=== PATIENT | female | born 1940 | race Caucasian/White ===

== ENCOUNTER 2016-10-15 12:13 | Inpatient (IN) | payer OTHER, MEDICARE ==
[~2016-10-15] VITALS: Ht 170.2 cm; Wt 73.9 kg
[~2016-10-15 12:13] MED LIST: ALLOPURINOL100 MG PO; CRESTOR10 M1 PO; FISH OIL CONC1000 MG PO; FOLIC ACID1 M1 PO; JANUVIA100 M1 PO; LEVOTHYROXINE150 MCG PO; MULTIPLE VITAM1 EAC2 PO; OMEPRAZOLE D/R20 MG PO; PRINIVIL10 M1 PO; PROBIOTIC & ACI1 CAP PO; TRAZODONE HCL50 M1 PO; TRAZODONE50 MG PO; VITAMIN D1000 IU PO; ZINC15 MG PO
--- NOTE | 2016-10-15 12:19 | ED SYNCOPE COMPLAINT ---
History of Present Illness General Chief Complaint: Syncope and Near-Syncope Stated Complaint: BIBA SYNCOPAL EPISODE/DIZZINESS Source: patient, family, old records, EMS Exam Limitations: no limitations Vital Signs & Intake/Output Vital Signs & Intake/Output Vital Signs Date Time Temp Pulse Resp B/P B/P Pulse O2 O2 Flow FiO2 Mean Ox Delivery Rate 10/15 1948 96.7 18 148/82 94 Room Air 10/15 1944 Room Air 10/15 1822 97.1 56 16 179/69 94 Room Air 10/15 1607 97.3 66 18 162/72 94 Room Air 10/15 1310 57 135/59 10/15 1309 57 135/59 10/15 1227 93 10/15 1223 98.0 57 18 160/70 96 Room Air Allergies Coded Allergies: codeine (UNKNOWN 10/15/16) Reconcile Medications Cholecalciferol (Vitamin D3) (Vitamin D) 5,000 UNIT TABLET 1 TAB PO DAILY VITAMIN SUPPORT (Reported) Folic Acid 1 MG TABLET 1 TAB PO DAILY SUPPLEMENT (Reported) Gabapentin 100 MG CAPSULE 1 CAP PO BID UNKNOWN (Reported) Levothyroxine Sodium 150 MCG TABLET 1 TAB PO MoWeFr ANN (Reported) Lisinopril (Prinivil) 10 MG TABLET 1 TAB PO DAILY HTN (Reported) Meclizine HCl 25 MG TABLET 1 TAB PO TIDPRN PRN DIZZNESS (Reported) Midodrine HCl 10 MG TABLET 1 TAB PO TID BP (Reported) Multivitamin (Multiple Vitamins) 1 EACH TABLET 1 TAB PO DAILY VITAMIN SUPPORT (Reported) Potassium Chloride 20 MEQ TAB.ER.PRT 1 TAB PO BID SUPPLEMENT (Reported) Prednisone 10 MG TABLET 1 TAB PO DAILY STEROID (Reported) Rosuvastatin Calcium (Crestor) 10 MG TABLET 1 TAB PO MoWeFr HLD (Reported) Sitagliptin Phosphate (Januvia) 100 MG TABLET 0.5 TAB PO MoWeFr DM (Reported) Thiamine HCl (B-1) 100 MG TABLET 1 TAB PO DAILY VITAMIN SUPPORT (Reported) Trazodone HCl 50 MG TABLET 1.5 TAB PO QPM DEPRESSION (Reported) Trazodone HCl 50 MG TABLET 1 TAB PO QPM SLEEP (Reported) Triage Nurses Notes Reviewed? yes Timing: multiple episodes today Precipitating Factors: lightheadedness Context: became dizzy/fainted (sittin got standing ) Episode Description: Patient reports feeling very dizzy and lightheaded when going from a sitting to standing position and has had multiple episodes where she will lose consciousness and fall over Loss of Consciousness: brief (seconds) Associated Symptoms: dizziness, syncope LMP (ages 10-50): post menopausal : No Patient currently breastfeeds: No HPI: A 76-year-old female with history of CKD on peritoneal dialysis, stable brain aneurysm, and orthostatic hypotension brought in by ambulance for evaluation after multiple syncopal episodes. Patient reports that over the past few months she has had multiple episodes of syncope after going from a sitting to standing position. Patient reports that upon standing she feels very lightheaded and will lose consciousness and fall over. She denies ever hitting her head or head injuries. She denies any chest pain or shortness of breath during the episodes. Patient was recently put on midodrine to attempt to increase her blood pressure. She has been taking this 3 times without any improvement. She is also been treated with meclizine without improvement. No headaches, fever or rash. Patient does peritoneal dialysis for 9 hours at night and then again in the afternoon every day. (AIDA MENDEZ PA-C) Past History Travel History Traveled to [place] past 21 day No Medical History Any Pertinent Medical History? see below for history Neurological: myasthenia gravis EENT: NONE Cardiovascular: hyperlipidemia Respiratory: NONE Gastrointestinal: GERD Hepatic: NONE Renal: ESRD on PD Musculoskeletal: NONE Psychiatric: NONE Endocrine: diabetes, Ann's thyroiditis Blood Disorders: NONE Cancer(s): NONE [employer] WORK[employer]/Reproductive: NONE History of MRSA: No History of VRE: No History of CDIFF: No Surgical History Surgical History: non-contributory Psychosocial History Who do you live with Spouse What is your primary language German Family History Family History, If Any: BROTHER FH polycystic kidney Hx Contributory? Yes (AIDA MENDEZ PA-C) Review of Systems Review of Systems Constitutional: Reports: no symptoms. EENTM: Reports: no symptoms. Respiratory: Reports: no symptoms. Cardiovascular: Reports: no symptoms. GI: Reports: no symptoms. Genitourinary: Reports: no symptoms. Musculoskeletal: Reports: no symptoms. Skin: Reports: no symptoms. Neurological/Psychological: Reports: see HPI, other (SYNCOPE, DIZZINESS). All Other Systems: Reviewed and Negative (AIDA MENDEZ PA-C) Physical Exam Physical Exam General Appearance: well developed/nourished, no apparent distress, alert, awake Head: atraumatic, normal appearance Eyes: Bilateral: normal appearance, PERRL, EOMI. Ears, Nose, Throat: normal pharynx, normal ENT inspection, hearing grossly normal Neck: normal inspection, supple, full range of motion Respiratory: normal breath sounds, chest non-tender, no respiratory distress, lungs clear Cardiovascular: regular rate/rhythm, normal peripheral pulses Gastrointestinal: normal bowel sounds, soft, non-tender, no organomegaly Back: normal inspection, normal range of motion, no vertebral tenderness Extremities: normal inspection, normal capillary refill, normal range of motion, no edema Psychiatric: awake, alert, oriented x 3, depressed affect Cranial Nerves: normal hearing, normal speech, PERRL Coordination/Gait: normal finger to nose, normal gait Motor/Sensory: no motor/sensory deficits Reflexes: 2+: bicep (R), bicep (L). Skin: intact, normal color, warm/dry Lymphatic: no anterior cervical sosa Core Measures ACS in differential dx? Yes CVA/TIA Diagnosis: No Severe Sepsis Present: No Septic Shock Present: No (AIDA MENDEZ PA-C) Progress Differential Diagnosis: AMI, aortic valve, orthostatic syncope, other valvular disease, seizure, TIA/CVA, ventricular tach/fib, VERTIGO Plan of Care: Orders Procedure Date/time Status CORTISOL AM 10/16 1200 Active CBC WITHOUT DIFFERENTIAL 10/16 0600 Active BASIC ELECTROLYTES PLUS BUN&CR 10/16 0600 Active Renal Dialysis Diet 10/15 D Active Teach/Educate 10/15 1942 Active Pain Treatment and Response 10/15 194 Active Nutritional Intake, Monitor 10/15 194 Active Isolation 10/15 194 Active Patient Care Conference 10/15 194 Active Activity/Ambulation 10/15 194 Active FingerStick- Glucose 10/15 1846 Active CORTISOL AM 10/15 1755 Active ACTH Ref$ 10/15 1755 Active Intake & Output 10/15 1618 Active Pathway - chart 10/15 1556 Active House Staff 10/15 1556 Active Patient Data 10/15 1556 Active Code Status 10/15 1556 Active Code Status 10/15 1511 Complete ED Holding Orders 10/15 1506 Active Admit to inpatient 10/15 1506 Active Vital Signs 10/15 1506 Active Patient Data 10/15 1449 Active Telemetry/Curriculum Writer 10/15 1317 Active MISTAKE 10/15 1242 Active URINALYSIS 10/15 1242 Active TROPONIN LEVEL 10/15 1242 Complete COMPREHENSIVE METABOLIC PANEL 10/15 1242 Complete CBC WITHOUT DIFFERENTIAL 10/15 1242 Complete EKG 10/15 1214 Active VTE Mechanical Prophylaxis 10/15 UNK Active Telemetry/Curriculum Writer 10/15 UNK Active Peritoneal Dialysis 10/15 UNK Active Current Medications Sig/Bailey Start time Last Medication Dose Stop Time Status Admin Prednisone 2.5 MG MoWeFr@1000 10/17 1000 AC (Prednisone) Levothyroxine Sodium 0.15 MG MoWeFr@0700 10/17 0700 AC (Synthroid) Cosyntropin 0.25 MG ONE ONE 10/16 1100 AC (Cortrosyn 0.25MG 10/16 1101 Vial Inj) Insulin Aspart 0 TIDAC 10/16 0800 AC (NovoLOG) Midodrine 10 MG 0800,1200,1600 10/16 0800 AC (Pro-Amatine) Heparin Sodium 5,000 UNIT Q8 10/15 2200 AC (Porcine) Meclizine HCl 12.5 MG Q8P PRN 10/15 1815 AC (Antivert) Acetaminophen 650 MG Q6P PRN 10/15 1600 AC (Tylenol) Acetaminophen 1,000 MG Q6P PRN 10/15 1600 AC (Ofirmev) Laboratory Tests 10/15/16 1257: Anion Gap 11, Estimated GFR 4 L, BUN/Creatinine Ratio 3.4 L, Glucose 151 H, Calcium 8.2 L, Total Bilirubin 0.8, AST 19, ALT 24, Alkaline Phosphatase 62, Troponin I 0.01, Total Protein 5.5 L, Albumin 3.1 L, Globulin 2.4, Albumin/ Globulin Ratio 1.3, CBC w Diff MAN DIFF ORDERED, RBC 3.37 L, MCV 99.1 H, MCH 33.6 H, RDW 13.1, MPV 9.3, Gran % 89.4 H, Lymphocytes % 7.3 L, Monocytes % 3.3, Eosinophils % 0, Basophils % 0 L, Absolute Granulocytes 12.2 H, Segmented Neutrophils 87 H, Band Neutrophils 5, Absolute Lymphocytes 1.0 L, Lymphocytes 7 L, Monocytes 1 L, Absolute Monocytes 0.5, Absolute Eosinophils 0, Absolute Basophils 0, Platelet Estimate ADEQUATE, Hypochromic-Microcytic 1+, PUBS MCHC 33.9 1:30 PM EKG reviewed, telemetry ordered. CBC CMP troponin and urinalysis ordered. Patient received 300 mL of normal saline in the prehospital setting. Patient was very orthostatic dropping from 150s to 80s systolic going from laying down to standing. Patient will likely be admitted for syncope and orthostatic hypotension. 1:[address] Topete patient's ornithology teacher was paged. Labs are back and show sodium of 129 and creatinine of 9. View of previous labs show creatinine usually runs in the 4-5 range. Pt has not yet been dialysed today. 2 PM: Spoke with Dr. Topete he will consult on the patient when she is admitted. Spoke with case management who feels patient will be a full admit to telemetry. Updated pt about the situation. (AIDA MENDEZ PA-C) Initial ED EKG: normal sinus rhythm, NSR, multiform PVCs, boderline LAD, no ST or T wave chnages Prior EKG: unchanged (AIDA MENDEZ PA-C) Departure Departure Disposition: STILL A PATIENT Condition: Stable Clinical Impression Primary Impression: Chronic kidney disease (CKD) Qualifiers: Chronic kidney disease stage: on chronic dialysis Qualified Codes: N18.6 - End stage renal disease; Z99.2 - Dependence on renal dialysis Secondary Impressions: Sympathotonic orthostatic hypotension, Syncope due to orthostatic hypotension Referrals: GAB PENA,IVAN Agrawal (PCP/Family) Departure Forms: Customer Survey General Discharge Information Admission Note Spoke With: ALYSON PENA,XANDER Almanzar Documentation of Exam: Patient requires admission for further evaluation of multiple syncopal episodes with orthostatic hypotension, CKD with creatinine of 9. Pt will likley require multiple inpatient days for apprpriate eval. She will require telemetry monitoring, physical therapy consult, gentle hydration, serial labs medication adjustment cardiology consult echocardiogram, tilt table test, nephrology consult with possible dialysis adjustment (AIDA MENDEZ PA-C) Departure Time of Disposition: 1506 PA/GROUP RESERVATIONS COORDINATOR Co-Sign Statement Statement: ED Attending supervision documentation- [X] I saw and evaluated the patient. I have also reviewed all the pertinent lab results and diagnostic results. I agree with the findings and the plan of care as documented in the PA's/GROUP RESERVATIONS COORDINATOR's documentation. [X] I have reviewed the ED Record and agree with the PA's/GROUP RESERVATIONS COORDINATOR's documentation. [] Additions or exceptions (if any) to the PAs/GROUP RESERVATIONS COORDINATOR's note and plan are summarized below: [] (ARTUR PENA,LUIS)
--- NOTE | 2016-10-15 12:23 | NUR ---
PT WITH SEVERAL EPISODES OF SYNCOPE TODAY. PT WITH HX OF SAME STATES HER MD AND NEPHROLOGYST AWARE AND THEY CAN'T PIN POINT WHY. PT ON PERATONIEL DIALYSIS AT HOME. PT FELL ON SATURDAY PER PT. PT BP WAS 80/40 FOR EMS. WAS GIVEN 500NS BOLUS ON ROUTE. PT ARRIVES BP 160/70 MANUAL
--- NOTE | 2016-10-15 13:08 | NUR ---
BLOOD DRAWN AND SENT -SST,LAV,BLUE,WARNER.
[2016-10-15 13:18] LABS: ABSOLUTE BASOPHIL COUNT 0 /CUMM (0.0-0.2); ABSOLUTE EOSINOPHIL COUNT 0 /CUMM (0.0-0.7); ABSOLUTE GRANULOCYTE CT 12.2 /CUMM (1.4-6.5); ABSOLUTE MONOCYTE COUNT 0.5 /CUMM (0.10-0.60); BASOPHIL % 0 % (0.0-2.0); EOSINOPHIL % 0 % (0-5); GRANULOCYTE % 89.4 % (42.2-75.2); HEMATOCRIT 33.4 % (37-47); MEAN CORPUSCULAR HGB 33.6 PG (27.0-31.0); MEAN CORPUSCULAR HGB CONC 33.9 G/DL (33.0-37.0); MEAN CORPUSCULAR VOLUME 99.1 FL (81.0-99.0); MEAN PLATELET VOLUME 9.3 FL (7.4-10.4); PLATELET COUNT 274 /CUMM (130-400); RBC DISTRIBUTION WIDTH 13.1 % (11.5-14.5); RED BLOOD CELL CT 3.37 /CUMM (4.20-5.40); WHITE BLOOD CELL COUNT 13.7 /CUMM (4.8-10.8)
--- NOTE | 2016-10-15 13:44 | NUR ---
CRITICAL TEST RESULTS [id number] DENY OSPINA 76 F TESTS AND RESULTS: CR. 3.4 Results received and read back by: EDDIE BOLIVAR Results received date and time: 10/15/16 1345 The following provider was notified of the results, and read the results back: DANAE SANON Notified date and time: 10/15/16 at 1345
[2016-10-15] MEDS ORDERED: GABAPENTIN100 M2 PO (13:55)
[2016-10-15] MEDS ORDERED: POTASSIUM CHLO20 ME2 PO (13:56)
[2016-10-15] MEDS ORDERED: MECLIZINE HCL25 MG PO (13:57)
[2016-10-15] MEDS ORDERED: MIDODRINE HCL10 M1 PO (13:58)
[2016-10-15] MEDS ORDERED: PREDNISONE10 M2 PO (13:59)
[2016-10-15] MEDS ORDERED: B-1100 MG PO (13:59)
[2016-10-15] MEDS ORDERED: VITAMIN D5000 UNIT PO (14:00)
[2016-10-15] MEDS ORDERED: TRAZODONE HCL50 M1 PO (14:00)
--- NOTE | 2016-10-15 15:30 | NUR ---
HOUSE STAFF AT BEDSIDE FOR EVAL.
--- NOTE | 2016-10-15 15:46 | NUR ---
FOOD TRAY ORDERED.
--- NOTE | 2016-10-15 16:15 | NUR ---
FOOD TRAY PROVIDED. DR. RODRIGUEZ AT BEDSIDE FOR EVAL. PT NOTED TO HAVE SYNCOPAL EPISODE JUST WHEN BEING SAT UP IN STRETCHER BY DR. RODRIGUEZ. PT RESPONDS TO VERBAL STIMULI WITHIN THIRTY SECONDS. WILL CONTINUE TO MONITOR.
--- NOTE | 2016-10-15 16:35 | NUR ---
CONTACTED BULK WHO WILL LOOK FOR DIALYSIS BAG.
--- NOTE | 2016-10-15 16:51 | NUR ---
HOUSE STAFF PAGED TO CLARIFY ORDERS.
--- NOTE | 2016-10-15 17:03 | NUR ---
PAGER [phone] FOR SECOND TIME. AWAITING CALL BACK.
--- NOTE | 2016-10-15 17:06 | History & Physical ---
PEDRO PENA,JAMAAL 10/15/16 1706: General Information and HPI MD Statement: I have seen and personally examined DENY OSPINA and documented this H&P. The patient is a 76 year old F who presented with a patient stated chief complaint of []. Source of Information: patient Exam Limitations: no limitations History of Present Illness: Patient is a 76-year-old female with significant past medical history of end stage renal disease secondary to autosomal dominant polycystic kidney disease on regular peritoneal dialysis(2012), history of brain aneurysm(f/u Dr Jung, going for a screening MRA every 9 months), history of Ann thyroiditis, mild myasthenia gravis, diabetes mellitus, psoriasis with psoriatic arthritis on chronic prednisone, presented with history of episodes of syncope and fall. According to the patient, since last one and half year, she is having gradually progressive dizziness. She is following her primary care physician. they started her on midodrine without any improvement. Since last 6 months she started having difficulty in controlling her neck. In this last weekend she had an episodes of passing out, but she is not able to remember and said that her told her she had episodes of uprolling of eyes. Denies trauma, tongue bite, incontinence of stool and urine, fever, chills, chest pain, palpitation, abdominal pain. She was found to have orthostatic hypotension for which she was started on midodrine. She also claims that because of this orthostatic hypotension and episodes of recurrent falls. She was out of the list of the transplant for kidneys at [facility]. She is following [facility] for dialysis. Her last blood test was done on last week and, after which she was advised to decrease the amount of water intake. Allergies-codeine PCP-Lizeth River MD Machine Specialist-Dr. Topete Senior [employer] [address] Sql Developer-Dr. Xavier Allergies/Medications Allergies: Coded Allergies: codeine (UNKNOWN 10/15/16) Home Med list Cholecalciferol (Vitamin D3) (Vitamin D) 5,000 UNIT TABLET 1 TAB PO DAILY VITAMIN SUPPORT (Reported) Folic Acid 1 MG TABLET 1 TAB PO DAILY SUPPLEMENT (Reported) Gabapentin 100 MG CAPSULE 1 CAP PO BID UNKNOWN (Reported) Levothyroxine Sodium 150 MCG TABLET 1 TAB PO MoWeFr ANN (Reported) Lisinopril (Prinivil) 10 MG TABLET 1 TAB PO DAILY HTN (Reported) Meclizine HCl 25 MG TABLET 1 TAB PO TIDPRN PRN DIZZNESS (Reported) Midodrine HCl 10 MG TABLET 1 TAB PO TID BP (Reported) Multivitamin (Multiple Vitamins) 1 EACH TABLET 1 TAB PO DAILY VITAMIN SUPPORT (Reported) Potassium Chloride 20 MEQ TAB.ER.PRT 1 TAB PO BID SUPPLEMENT (Reported) Prednisone 10 MG TABLET 1 TAB PO DAILY STEROID (Reported) Rosuvastatin Calcium (Crestor) 10 MG TABLET 1 TAB PO MoWeFr HLD (Reported) Sitagliptin Phosphate (Januvia) 100 MG TABLET 0.5 TAB PO MoWeFr DM (Reported) Thiamine HCl (B-1) 100 MG TABLET 1 TAB PO DAILY VITAMIN SUPPORT (Reported) Trazodone HCl 50 MG TABLET 1.5 TAB PO QPM DEPRESSION (Reported) Trazodone HCl 50 MG TABLET 1 TAB PO QPM SLEEP (Reported) Past History Travel History Traveled to [place] past 21 day No Medical History Neurological: myasthenia gravis EENT: NONE Cardiovascular: hyperlipidemia Respiratory: NONE Gastrointestinal: GERD Hepatic: NONE Renal: ESRD on PD Musculoskeletal: NONE Psychiatric: NONE Endocrine: diabetes, Ann's thyroiditis Blood Disorders: NONE Cancer(s): NONE LENDING ADVISOR/Reproductive: NONE Other Medical Hx: cerbral aneurysm History of MRSA: No History of VRE: No History of CDIFF: No Surgical History Surgical History: non-contributory Past Family/Social History Family History Relations & Conditions if any BROTHER FH polycystic kidney Psychosocial History ETOH Use: denies use Illicit Drug Use: denies illicit drug use Review of Systems Review of Systems Constitutional: Denies: no symptoms. Cardiovascular: Denies: no symptoms. Respiratory: Denies: no symptoms. Genitourinary: Denies: no symptoms. Musculoskeletal: Denies: no symptoms. Neurological/Psychological: Denies: no symptoms. Exam & Diagnostic Data Last 24 Hrs of Vital Signs/I&O Vital Signs Date Time Temp Pulse Resp B/P B/P Pulse O2 O2 Flow FiO2 Mean Ox Delivery Rate 10/15 1948 96.7 18 148/82 94 Room Air 10/16 1943 Room Air 10/15 1822 97.1 56 16 179/69 94 Room Air 10/15 1607 97.3 66 18 162/72 94 Room Air 10/15 1310 57 135/59 10/15 1309 57 135/59 06/12 1227 93 10/15 1223 98.0 57 18 160/70 96 Room Air Intake & Output 10/15 1600 10/15 0800 10/15 0000 Intake Total Output Total Balance Patient 73.482 kg Weight Weight Reported by Patient Measurement Method Physical Exam General Appearance Alert, Oriented X3, Cooperative, No Acute Distress Cardiovascular Normal S1, Normal S2 Lungs Clear to Auscultation, Normal Air Movement Abdomen Soft, No Tenderness, dialysis catheter is in place on the left middle quadrant Neurological Normal Speech, Strength at 5/5 X4 Ext Extremities No Clubbing, No Cyanosis, No Edema Vascular Normal Pulses, Pulses Symmetrical Last 24 Hrs of Labs/Baldo: Laboratory Tests 10/15/16 1257: Anion Gap 11, Estimated GFR 4 L, BUN/Creatinine Ratio 3.4 L, Glucose 151 H, Calcium 8.2 L, Total Bilirubin 0.8, AST 19, ALT 24, Alkaline Phosphatase 62, Troponin I 0.01, Total Protein 5.5 L, Albumin 3.1 L, Globulin 2.4, Albumin/ Globulin Ratio 1.3, CBC w Diff MAN DIFF ORDERED, RBC 3.37 L, MCV 99.1 H, MCH 33.6 H, RDW 13.1, MPV 9.3, Gran % 89.4 H, Lymphocytes % 7.3 L, Monocytes % 3.3, Eosinophils % 0, Basophils % 0 L, Absolute Granulocytes 12.2 H, Segmented Neutrophils 87 H, Band Neutrophils 5, Absolute Lymphocytes 1.0 L, Lymphocytes 7 L, Monocytes 1 L, Absolute Monocytes 0.5, Absolute Eosinophils 0, Absolute Basophils 0, Platelet Estimate ADEQUATE, Hypochromic-Microcytic 1+, PUBS MCHC 33.9 Diagnostic Data EKG Results Normal sinus rhythm, heart rate 57, WA 196, QRS 86, QTC 0.463 Assessment/Plan Assessment: Patient is a 76-year-old female with significant past medical history of end stage renal disease secondary to autosomal dominant polycystic kidney disease on regular peritoneal dialysis(2012), history of brain aneurysm(f/u Dr Jung, going for a screening MRA every 9 months), history of Ann thyroiditis, mild myasthenia gravis, diabetes mellitus, psoriasis with psoriatic arthritis on chronic prednisone, presented with history of episodes of syncope and fall. Vital signs at the time of admission -temperature 98.0, pulse 57, respiratory 18 , blood pressure 160/70, SPO2 96% on room air Pertinent labs -Hb-11.3,MCV-99.1,K-129,Cretinine-9.4,ca-8.2,alb -3.1 Assessment and plans Patient has episodes of syncope and found to have orthostatic hypotension. It can be due to amyloidosis secondary to peritoneal dialysis or it can be due to steroid insufficiency because she was on chronic steroid therapy for psoriasis and arthritis. Orthostatic hypotension * We will admit the patient to telemetry floor * We will rule out arrhythmia by regularly checking the heart rhythm * We'll take cardiology consult and follow the recommendation * Will give IV fluids 1 liter bolus * We will continue tablet midodrine as before * We will discuss with stencil cutter machine for starting her on fludrocortisone * We will check steroid, label after ACTH stimulation test, to rule out adrenal insufficiency * Strict intake output charting * Fall precautions End stage renal disease on Peritoneal dialysis * We will place nephrology consult and followed the recommendation Will start patient on peritoneal dialysis according to the recommendation History of myasthenia gravis * Patient is not on any medications, she is complaining of weakness in the neck muscle. She is already been evaluated before. * We will take a neurologic consult and followed the recommendation Hypothyroidism-Ann thyroiditis * We'll continue levothyroxine at home doses Diet-diabetic diet DVT prophylaxis-ALP S/heparin CODE STATUS-full code As Ranked By This Provider Problem List: 1. Diabetes 2. Ann's disease 3. Polycystic kidney disease 4. Syncope and collapse 5. Peritoneal dialysis catheter in place 6. Sympathotonic orthostatic hypotension Core Measures/Miscellaneous Acute Coronary Syndrome ACS Diagnosis: No Cerebrovascular Accident CVA/TIA Diagnosis: No Congestive Heart Failure CHF Diagnosis: No VTE (View Protocol) VTE Risk Factors: Age > 40 No [facility] VTE prophylaxis d/t: No contraindications No VTE Pharm Prophylaxis d/t: No contraindications VTE Diagnosis: No VTE Type: NONE VTE Confirmed by (Test): NONE Sepsis (View Protocol) Severe Sepsis Present: No Septic Shock Septic Shock Present: No Miscellaneous Documentation Attending Case Discussed With: XANDER SHIELDS MD Primary Care Physician: GAB PENA,LIZETH Agrawal Patient sees these Specialists Lanre Aguirre MD, Level of Patient Care: Telemetry TAMANNA SMALL 10/15/16 1711: Resident Review Statement Resident Statement: examined this patient, discussed with web development intern, agreed with web development intern Other Findings: Patient is a 76-year-old woman with a past medical history significant for end- stage renal disease due to ADPKD on peritoneal dialysis since 2012 , treated with brain aneurysm follows up with Dr. Jung as an outpatient(gets MRA every 9 months), history of orthostatic hypotension history of Ann's thyroiditis, myasthenia gravis, diabetes mellitus, since, rheumatoid arthritis on chronic prednisone presented to the ED with concerns of syncope. Patient has a history of orthostatic hypotension for the last 1-1/2 years getting worse for the last couple of months. She has been started on midodrine by her stencil cutter machine, without much improvement in her symptoms.Patient also reported that for the last couple of months she cannot able to hold up her neck, has been getting dizzy spells/episodes. For the last 2 days she had multiple episodes of syncope from sitting to standing position due to severe dizziness and lightheadedness, passed out completely for couple of seconds, had a witnessed fall by her ,denied any injuries to neck. . Her symptoms are concerning and she was brought to the ER for further assessment. In the ED patient denied any dizziness, trouble breathing or palpitations. Patient denies any nausea or vomiting or any abdominal discomfort or urinary complaints. in ED patient was found to be severely orthostatic and her blood pressure dropped from 150 systolic and lying position to 80 on sitting. General Appearance: Alert, No Acute Distress, in moving from laying to sitting position patient passed out for couple of seconds. Skin: Grossly normal HEENT: PEERLA Neck: Supple, No JVD Cardiovascular: Irregularly irregular rate and rhythm, No Murmurs Lungs: Clear to Auscultation, Normal Air Movement Abdomen: Normal Bowel Sounds, Soft, No Tenderness Neurological: Normal Speech, Strength at 5/5 X4 Ext, Cranial Nerves 3-12 NL, Reflexes 2+ Extremities: No edema in the lower activities. Vascular: Normal Pulses . Pertinent labs hyponatremia sodium 129, elevated creatinine 9.4 with a BUN of 32 , EKG normal sinus rhythm Assessment and plan: This is a 76-year-old woman with a past medical history significant for end- stage renal disease due to ADPKD on peritoneal dialysis since 2012 , treated with brain aneurysm follows up with Dr. Jung as an outpatient(gets MRA every 9 months), history of orthostatic hypotension history of Ann's thyroiditis, myasthenia gravis, diabetes mellitus, since, rheumatoid arthritis on chronic prednisone presented to the ED for the evaluation of severe orthostatic hypotension. Plan: Syncope from Severe orthostatic hypotension(differentials include adrenal insufficiency/autoimmune disorder/amyloidosis)/cardiogenic/vasovagal: * We'll monitor the patient on telemetry floor. * We'll bolus the patient with 1 L of normal saline right now. * Closely monitor the patient for any arrhythmias. * We'll check morning a.m. cortisol levels if low ,do ACTH ( cotrosyn) stimulation test to rule out any adrenal insufficiency. * Repeat orthostatics. * Continue with midodrine 10 mg 3 times a day with meclizine as needed for dizziness. * Continue to hold all of her hypertensive medications. * Monitor vitals every 4 hours watch for any hemodynamic instability * Obtain neurology consult in the morning. History of end-stage renal disease on peritoneal dialysis: * Nephrology consult Dr. Patterson has been obtained will follow the recommendations. History of diabetes mellitus * Hold oral hypoglycemics * Start the vision overall sliding scale with Accu-Cheks. History of rheumatoid arthritis * Continue prednisone 2.5 mg 3 times a week. History of hypothyroidism * Continue levothyroxin Mild to moderate pain controlled with Tylenol DVT prophylaxis with subcutaneous Lovenox Patient is full code
--- NOTE | 2016-10-15 17:06 | Cons- Nephrology ---
General Information and HPI Consulting Request Date of Consult: 10/15/16 Requested By: ALYSON PENA,XANDER Almanzar Reason for Consult: Syncope in dialysis patient History of Present Illness: 76 yo female with ESRD due ADPKD on peritoneal dialysis since 2012. She has orthostatic hypotension which has worsened over last year. She has diabetes and mild neuropathy. She also has known cerberal aneurysm which is followed by neurosurgery. The extent of her prior evaluation for her orthostasis is unkonw to me but she is followed by Dr. Topete from cardiology. She is on midodrine 10 mg tid and despite this had several syncopal episodes this past weekend. She came to ED where her lying bp was 150, fell to 80 on standing. When I saw her in the ED her systolic BP was 163 lying but she immediately lost consciousness on just sitting up with legs extended, did not have time to repeat BP. No tachycardia noted during event. There have been no dialysis issues at home, she is near her dry weight. No N/V/diarrhea. Allergies/Medications Allergies: Coded Allergies: codeine (UNKNOWN 10/15/16) Home Med List: Cholecalciferol (Vitamin D3) (Vitamin D) 5,000 UNIT TABLET 1 TAB PO DAILY VITAMIN SUPPORT (Reported) Folic Acid 1 MG TABLET 1 TAB PO DAILY SUPPLEMENT (Reported) Gabapentin 100 MG CAPSULE 1 CAP PO BID UNKNOWN (Reported) Levothyroxine Sodium 150 MCG TABLET 1 TAB PO MoWeFr ANN (Reported) Lisinopril (Prinivil) 10 MG TABLET 1 TAB PO DAILY HTN (Reported) Meclizine HCl 25 MG TABLET 1 TAB PO TIDPRN PRN DIZZNESS (Reported) Midodrine HCl 10 MG TABLET 1 TAB PO TID BP (Reported) Multivitamin (Multiple Vitamins) 1 EACH TABLET 1 TAB PO DAILY VITAMIN SUPPORT (Reported) Potassium Chloride 20 MEQ TAB.ER.PRT 1 TAB PO BID SUPPLEMENT (Reported) Prednisone 10 MG TABLET 1 TAB PO DAILY STEROID (Reported) Rosuvastatin Calcium (Crestor) 10 MG TABLET 1 TAB PO MoWeFr HLD (Reported) Sitagliptin Phosphate (Januvia) 100 MG TABLET 0.5 TAB PO MoWeFr DM (Reported) Thiamine HCl (B-1) 100 MG TABLET 1 TAB PO DAILY VITAMIN SUPPORT (Reported) Trazodone HCl 50 MG TABLET 1.5 TAB PO QPM DEPRESSION (Reported) Trazodone HCl 50 MG TABLET 1 TAB PO QPM SLEEP (Reported) Review of Systems Review of Systems: Negative except as noted above. Past History Travel History Traveled to [place] past 21 day No Medical History Neurological: myasthenia gravis EENT: NONE Cardiovascular: hyperlipidemia Respiratory: NONE Gastrointestinal: GERD Hepatic: NONE Renal: ESRD on PD Musculoskeletal: NONE Psychiatric: NONE Endocrine: diabetes, Ann's thyroiditis Blood Disorders: NONE Cancer(s): NONE WHITE SOURER/Reproductive: NONE Other Medical Hx: cerbral aneurysm Surgical History Surgical History: non-contributory Family History Relations & Conditions If Any: BROTHER FH polycystic kidney Psychosocial History ETOH Use: denies use Illicit Drug Use: denies illicit drug use Exam & Diagnostic Data Vital Signs and I&O Vital Signs Date Time Temp Pulse Resp B/P B/P Pulse O2 O2 Flow FiO2 Mean Ox Delivery Rate 10/15 1607 97.3 66 18 162/72 94 Room Air 10/15 1310 57 135/59 10/15 1309 57 135/59 10/15 1227 93 10/15 1223 98.0 57 18 160/70 96 Room Air Intake & Output 10/15 1600 10/15 0400 10/14 1600 10/14 0400 10/13 1600 10/13 0400 Intake Total Output Total Balance Patient 162 lb Weight Weight Reported by Patient Measurement Method Physical Exam: NAD when lying. VS as noted. Eyes: anicteric, PERRLA Neck: no mass or thyromegaly Nodes: negative cervical/inguinal Skin: no rash or induration Lungs: clear P&A CV: no rub or murmur Abd: non-tender, kidneys enlarged, bowel sound positive Exts: no edema, absent pedal pulses Neuro: A&O, CNI, no asterixis Results Pertinent Lab Results: Laboratory Tests 10/15 1257 Chemistry Sodium (137 - 145 mmol/L) 129 L Potassium (3.5 - 5.1 mmol/L) 4.0 Chloride (98 - 107 mmol/L) 92 L Carbon Dioxide (22 - 30 mmol/L) 26 Anion Gap (5 - 16) 11 BUN (7 - 17 mg/dL) 32 H Creatinine (0.5 - 1.0 mg/dL) 9.4 *H Estimated GFR (>60 ml/min) 4 L BUN/Creatinine Ratio (7 - 25 %) 3.4 L Glucose (65 - 99 mg/dL) 151 H Calcium (8.4 - 10.2 mg/dL) 8.2 L Total Bilirubin (0.2 - 1.3 mg/dL) 0.8 AST (14 - 36 U/L) 19 ALT (9 - 52 U/L) 24 Alkaline Phosphatase (<127 U/L) 62 Troponin I (< 0.11 ng/ml) 0.01 Total Protein (6.3 - 8.2 g/dL) 5.5 L Albumin (3.5 - 5.0 g/dL) 3.1 L Globulin (1.9 - 4.2 gm/dL) 2.4 Albumin/Globulin Ratio (1.1 - 2.2 %) 1.3 Hematology CBC w Diff MAN DIFF ORDERED WBC (4.8 - 10.8 /CUMM) 13.7 H RBC (4.20 - 5.40 /CUMM) 3.37 L Hgb (12.0 - 16.0 G/DL) 11.3 L Hct (37 - 47 %) 33.4 L MCV (81.0 - 99.0 FL) 99.1 H MCH (27.0 - 31.0 PG) 33.6 H RDW (11.5 - 14.5 %) 13.1 Plt Count (130 - 400 /CUMM) 274 MPV (7.4 - 10.4 FL) 9.3 Gran % (42.2 - 75.2 %) 89.4 H Lymphocytes % (20.5 - 51.1 %) 7.3 L Monocytes % (1.7 - 9.3 %) 3.3 Eosinophils % (0 - 5 %) 0 Basophils % (0.0 - 2.0 %) 0 L Absolute Granulocytes (1.4 - 6.5 /CUMM) 12.2 H Segmented Neutrophils (42.2 - 75.2 %) 87 H Band Neutrophils (0.0 - 5.0 %) 5 Absolute Lymphocytes (1.2 - 3.4 /CUMM) 1.0 L Lymphocytes (20.5 - 51.1 %) 7 L Monocytes (1.7 - 9.3 %) 1 L Absolute Monocytes (0.10 - 0.60 /CUMM) 0.5 Absolute Eosinophils (0.0 - 0.7 /CUMM) 0 Absolute Basophils (0.0 - 0.2 /CUMM) 0 Platelet Estimate (ADEQUATE) ADEQUATE Hypochromic-Microcytic 1+ PUBS MCHC (33.0 - 37.0 G/DL) 33.9 Assessment/Plan Assessment/Recommendations Assessment: ESRD with extreme, symptomatic orthostatic hypotension. Origin of this not clear as doesn't have severe neuropathy. Seems euvolemic on exam although would consider pushing up volume and see if this can help with postural changes. Recommendations: Would give patient 1 liter of NS at 200 cc/hr and reassess BP. Will place on all 1.5% dextrose, 2.5 calcium dialyisate 4 amaury a day to try and minimize volume removal. Continue her usual outpatient medications. Patient states she takes prednisone 2.5 mg three times a week. It might be reasonable to perform cotrosyn stimulation test as she may be adrenally supressed by this low infrequent dose but not receiving enough to protect her from symptoms.
--- NOTE | 2016-10-15 17:10 | NUR ---
HOUSE STAFF PAGED AT 210. AWAITING CALL BACK.
--- NOTE | 2016-10-15 17:21 | Admission Certification ---
Admission Certification Certification Statement - As attending physician, I certify that at the time of - admission, based on clinical presentation, severity of - symptoms, need for further diagnostic testing and - therapeutic interventions, and risk of adverse outcomes - without in-hospital treatment, in my clinical assessment, - this patient requires an acute hospital stay for a minimum - of two nights or longer. I have also considered psychsocial - factors such as support system, advanced age, financial - issues, cognitive issues, and failed out-patient treatments, - past re-admission history, safety of patient, and lack of - compliance as applicable. Specific rationale supporting this admission is: recurrent syncopal episodes
--- NOTE | 2016-10-15 17:24 | NUR ---
PT'S PREHOSPITAL IV TOO PAINFUL FOR USE. [facility] AT BEDSIDE FOR NEW IV PLACEMENT.
--- NOTE | 2016-10-15 17:34 | NUR ---
IVF INFUSING NOW PER ORDER. CONFIRMED THAT PROVIDERS WANT THE IVF BEFORE DIALYSIS.
--- NOTE | 2016-10-15 17:43 | PN- Att Addend ---
Attending MD Review Statement Attending Statement Attending MD Statement: examined this patient, discuss w/resident/PA/DIRECTOR DIGITAL ADVERTISING, agreed w/resident/PA/DIRECTOR DIGITAL ADVERTISING, reviewed EMR data (avail), discussed w/nursing, discussed w/ case mgmt Attending Assessment/Plan: Laboratory Tests 10/15/16 1257: Anion Gap 11, Estimated GFR 4 L, BUN/Creatinine Ratio 3.4 L, Glucose 151 H, Calcium 8.2 L, Total Bilirubin 0.8, AST 19, ALT 24, Alkaline Phosphatase 62, Troponin I 0.01, Total Protein 5.5 L, Albumin 3.1 L, Globulin 2.4, Albumin/ Globulin Ratio 1.3, CBC w Diff MAN DIFF ORDERED, RBC 3.37 L, MCV 99.1 H, MCH 33.6 H, RDW 13.1, MPV 9.3, Gran % 89.4 H, Lymphocytes % 7.3 L, Monocytes % 3.3, Eosinophils % 0, Basophils % 0 L, Absolute Granulocytes 12.2 H, Segmented Neutrophils 87 H, Band Neutrophils 5, Absolute Lymphocytes 1.0 L, Lymphocytes 7 L, Monocytes 1 L, Absolute Monocytes 0.5, Absolute Eosinophils 0, Absolute Basophils 0, Platelet Estimate ADEQUATE, Hypochromic-Microcytic 1+, PUBS MCHC 33.9 Vital Signs Date Time Temp Pulse Resp B/P B/P Pulse O2 O2 Flow FiO2 Mean Ox Delivery Rate 10/15 1607 97.3 66 18 162/72 94 Room Air 10/15 1310 57 135/59 10/15 1309 57 135/59 10/15 1227 93 10/15 1223 98.0 57 18 160/70 96 Room Air 76 yr old female with pmh of APKD, ESRD on peritoneal dialysis, Mild Myasthenia gravis not on meds , orthostatic hypotension on midodrine, psoriasis on hydrocortisone and also on po prednisone ( ? For RA) low dose 3 times a week admitted with recurrent syncopal episodes. Pt on exam is positive for orthostatic BP. Neck muscles strenght ok, would rule out endocrine causes like secondary or tertiary adrenal insufficiency. will get acth and am cortisol level. will also get nephrology and neurology to see the patient. Cont midodrine and monitor on telemetry. If nephro ok will give a trial of hydrocortisone after we get cortisol and acth levels tomorrow.
--- NOTE | 2016-10-15 18:02 | NUR ---
PT ADMITTED TO ROOM 180-2
--- NOTE | 2016-10-15 18:25 | Cons- Cardiology ---
General Information and HPI Consulting Request Date of Consult: 10/15/16 Requested By: XANDER SHIELDS MD Reason for Consult: Recurrent syncope in a dialysis patient. Source of Information: patient, old records Exam Limitations: no limitations History of Present Illness: Tatianna Osorio is a 76-year-old female who I have been following for a number of years. I have seen her a couple of times for cardiac evaluations for potential renal transplantation. The patient has polycystic kidney disease. About 4 years ago she went on peritoneal dialysis for renal failure, which she is tolerating well. Many of her first-degree relatives have had kidney transplants for the same condition. Tatianna has a history of hypertension and dyslipidemia, and also diabetes mellitus. She does not have any history of heart disease. Her recent evaluations include an echocardiogram in 07/2014 which showed normal LV wall thickness, normal LV function, normal valvular structures, and no significant issues. She had stress tests in 01/2013 and 2014 which were normal by EKG with nuclear imaging. She had a stress and an echo as per the renal transplant list protocol which were both normal in July 2015. For the past few months she has been having postural dizzy spells which have been gradually getting worse. Currently she is unable to get up at all without passing out. She came to the emergency room for this purpose. She has not had any chest pain, shortness of breath, palpitations. Her home medication list includes trazodone, which she has been on for years for sleep. She is really not on any other cardiac medications. she has recently been on Midodrine which was increased to the maximum dose of 10 mg 3 times a day. Allergies/Medications Allergies: Coded Allergies: codeine (UNKNOWN 10/15/16) Home Med List: Cholecalciferol (Vitamin D3) (Vitamin D) 5,000 UNIT TABLET 1 TAB PO DAILY VITAMIN SUPPORT (Reported) Folic Acid 1 MG TABLET 1 TAB PO DAILY SUPPLEMENT (Reported) Gabapentin 100 MG CAPSULE 1 CAP PO BID UNKNOWN (Reported) Levothyroxine Sodium 150 MCG TABLET 1 TAB PO MoWeFr ANN (Reported) Lisinopril (Prinivil) 10 MG TABLET 1 TAB PO DAILY HTN (Reported) Meclizine HCl 25 MG TABLET 1 TAB PO TIDPRN PRN DIZZNESS (Reported) Midodrine HCl 10 MG TABLET 1 TAB PO TID BP (Reported) Multivitamin (Multiple Vitamins) 1 EACH TABLET 1 TAB PO DAILY VITAMIN SUPPORT (Reported) Potassium Chloride 20 MEQ TAB.ER.PRT 1 TAB PO BID SUPPLEMENT (Reported) Prednisone 10 MG TABLET 1 TAB PO DAILY STEROID (Reported) Rosuvastatin Calcium (Crestor) 10 MG TABLET 1 TAB PO MoWeFr HLD (Reported) Sitagliptin Phosphate (Januvia) 100 MG TABLET 0.5 TAB PO MoWeFr DM (Reported) Thiamine HCl (B-1) 100 MG TABLET 1 TAB PO DAILY VITAMIN SUPPORT (Reported) Trazodone HCl 50 MG TABLET 1.5 TAB PO QPM DEPRESSION (Reported) Trazodone HCl 50 MG TABLET 1 TAB PO QPM SLEEP (Reported) Current Medications: Current Medications Sig/Bailey Start time Last Medication Dose Route Stop Time Status Admin Acetaminophen 650 MG Q6P PRN 10/15 1600 AC PO Acetaminophen 1,000 MG Q6P PRN 10/15 1600 AC IV Cosyntropin 0.25 MG ONE ONE 10/16 1100 UNVr IV 10/16 1101 Heparin Sodium 5,000 UNIT Q8 10/15 2200 AC (Porcine) SC Insulin Aspart 0 TIDAC 10/16 0800 AC SC Levothyroxine Sodium 0.15 MG MoWeFr@0700 10/17 0700 AC PO Meclizine HCl 12.5 MG Q8P PRN 10/15 1815 UNVr PO Midodrine 10 MG 0800,1200,1600 10/16 0800 UNVr PO Prednisone 2.5 MG .[3 TIMES WEEK] 10/15 1745 UNVr PO Sodium Chloride 1,000 ML BOLUS ONE 10/15 1630 DC 10/15 IV 10/15 1729 1734 Review of Systems Review of Systems: She has no other complaints in the review of systems Past History Travel History Traveled to [place] past 21 day No Medical History Neurological: myasthenia gravis EENT: NONE Cardiovascular: hyperlipidemia Respiratory: NONE Gastrointestinal: GERD Hepatic: NONE Renal: ESRD on PD Musculoskeletal: NONE Psychiatric: NONE Endocrine: diabetes, Ann's thyroiditis Blood Disorders: NONE Cancer(s): NONE 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 Other Medical Hx: cerbral aneurysm Surgical History Surgical History: non-contributory Family History Relations & Conditions If Any: BROTHER FH polycystic kidney Psychosocial History ETOH Use: denies use Illicit Drug Use: denies illicit drug use Exam & Diagnostic Data Vital Signs and I&O She is in no distress Vital Signs Date Time Temp Pulse Resp B/P B/P Pulse O2 O2 Flow FiO2 Mean Ox Delivery Rate 10/15 1607 97.3 66 18 162/72 94 Room Air 10/15 1310 57 135/59 10/15 1309 57 135/59 10/15 1227 93 10/15 1223 98.0 57 18 160/70 96 Room Air Intake & Output 10/15 1600 10/15 0800 10/15 0000 10/14 1600 10/14 0800 10/14 0000 Intake Total Output Total Balance Patient 162 lb Weight Weight Reported by Patient Measurement Method Physical Exam: She is in no distress HEENT exam is normal Chest is clear Heart reveals regular rhythm and no murmurs Extremities no edema Labs/Baldo Results: Laboratory Tests 10/15 1257 Chemistry Sodium (137 - 145 mmol/L) 129 L Potassium (3.5 - 5.1 mmol/L) 4.0 Chloride (98 - 107 mmol/L) 92 L Carbon Dioxide (22 - 30 mmol/L) 26 Anion Gap (5 - 16) 11 BUN (7 - 17 mg/dL) 32 H Creatinine (0.5 - 1.0 mg/dL) 9.4 *H Estimated GFR (>60 ml/min) 4 L BUN/Creatinine Ratio (7 - 25 %) 3.4 L Glucose (65 - 99 mg/dL) 151 H Calcium (8.4 - 10.2 mg/dL) 8.2 L Total Bilirubin (0.2 - 1.3 mg/dL) 0.8 AST (14 - 36 U/L) 19 ALT (9 - 52 U/L) 24 Alkaline Phosphatase (<127 U/L) 62 Troponin I (< 0.11 ng/ml) 0.01 Total Protein (6.3 - 8.2 g/dL) 5.5 L Albumin (3.5 - 5.0 g/dL) 3.1 L Globulin (1.9 - 4.2 gm/dL) 2.4 Albumin/Globulin Ratio (1.1 - 2.2 %) 1.3 Hematology CBC w Diff MAN DIFF ORDERED WBC (4.8 - 10.8 /CUMM) 13.7 H RBC (4.20 - 5.40 /CUMM) 3.37 L Hgb (12.0 - 16.0 G/DL) 11.3 L Hct (37 - 47 %) 33.4 L MCV (81.0 - 99.0 FL) 99.1 H MCH (27.0 - 31.0 PG) 33.6 H RDW (11.5 - 14.5 %) 13.1 Plt Count (130 - 400 /CUMM) 274 MPV (7.4 - 10.4 FL) 9.3 Gran % (42.2 - 75.2 %) 89.4 H Lymphocytes % (20.5 - 51.1 %) 7.3 L Monocytes % (1.7 - 9.3 %) 3.3 Eosinophils % (0 - 5 %) 0 Basophils % (0.0 - 2.0 %) 0 L Absolute Granulocytes (1.4 - 6.5 /CUMM) 12.2 H Segmented Neutrophils (42.2 - 75.2 %) 87 H Band Neutrophils (0.0 - 5.0 %) 5 Absolute Lymphocytes (1.2 - 3.4 /CUMM) 1.0 L Lymphocytes (20.5 - 51.1 %) 7 L Monocytes (1.7 - 9.3 %) 1 L Absolute Monocytes (0.10 - 0.60 /CUMM) 0.5 Absolute Eosinophils (0.0 - 0.7 /CUMM) 0 Absolute Basophils (0.0 - 0.2 /CUMM) 0 Platelet Estimate (ADEQUATE) ADEQUATE Hypochromic-Microcytic 1+ PUBS MCHC (33.0 - 37.0 G/DL) 33.9 Diagnostic Data EKG Results EKG shows sinus rhythm at a rate of 57. There is borderline left axis deviation. EKG is otherwise unremarkable. CXR Results Not done Assessment/Plan Assessment/Plan Tatianna has worsening postural hypotension which has progressed to justin syncopal episodes. There is no obvious cardiac cause for this. Obviously neuropathy is a consideration. Also trazodone has a listed adverse effect of orthostatic hypotension and syncope, although she has been on this medication for many year. Fluid shifts due to her dialysis of course are in consideration and are being addressed by Nephrology. From a cardiac standpoint we will watch her on the monitor, although I don't think arrhythmias are playing a role here. I would definitely stop her trazodone for now using other drugs for sleep if needed. Consult Acknowledgment - Thank you for your consult request.
--- NOTE | 2016-10-15 18:26 | NUR ---
NURSE TO CALL BACK FOR REPORT.
--- NOTE | 2016-10-15 18:49 | NUR ---
REPORT GIVEN TO LUCIANA EL.
[2016-10-15 19:49] VITALS: BP 148/82
[2016-10-16 00:47] VITALS: BP 136/76
[2016-10-16 08:11] VITALS: BP 134/70
--- NOTE | 2016-10-16 08:27 | PN- Housestaff ---
Subjective Follow-up For: Orthostatic hypotension Complaints: no active complains Tele-Events Since Last Visit: CARLOS Subjective: patient is seen and examined at the bed side. Patient was feeling much better. She said that every morning she feels better but as the day passes. She feels weaker and weaker. She also wanted to use heparin in dialysis fluid, but not want to take heparin shot as a DVT prophylaxis. We discussed her about in detail that we will discuss with managing supervisor. We advised her to take heparin shot for DVT prophylaxis otherwise she will have more chances to Clots. Review of Systems Constitutional: Reports: no symptoms. Cardiovascular: Denies: chest pain, palpitations. Respiratory: Denies: cough, short of breath. Gastrointestinal: Denies: abdominal pain. Genitourinary: Denies: frequency. Neurological/Psychological: Denies: anxiety, depressed. Objective Last 24 Hrs of Vital Signs/I&O Vital Signs Date Time Temp Pulse Resp B/P B/P Pulse O2 O2 Flow FiO2 Mean Ox Delivery Rate 10/16 0811 97.9 57 18 134/70 95 Room Air 10/16 0047 97.6 60 18 136/76 94 Room Air 10/15 1949 96.7 18 148/82 94 Room Air 10/15 1944 Room Air 10/15 1822 97.1 56 16 179/69 94 Room Air 10/15 1607 97.3 66 18 162/72 94 Room Air 10/15 1310 57 135/59 10/15 1309 57 135/59 10/15 1227 93 10/15 1223 98.0 57 18 160/70 96 Room Air Intake & Output 10/16 1600 10/16 0800 10/16 0000 Intake Total 250 Output Total 400 Balance -400 250 Intake, IV 200 Intake, Oral 50 Output, 400 Dialysate Patient 73.936 kg Weight Weight Reported by Patient Measurement Method Physical Exam General Appearance: Alert, Oriented X3, Cooperative, No Acute Distress Cardiovascular: Normal S1, Normal S2 Lungs: Clear to Auscultation, Normal Air Movement Abdomen: Soft, No Tenderness, dialysis catheter is in place Neurological: Normal Speech Extremities: No Clubbing, No Cyanosis, No Edema Vascular: Normal Pulses, Pulses Symmetrical Current Medications: Current Medications Sig/Bailey Start time Last Medication Dose Route Stop Time Status Admin Acetaminophen 650 MG Q6P PRN 10/15 1600 AC PO Acetaminophen 1,000 MG Q6P PRN 10/15 1600 AC IV Cosyntropin 0.25 MG ONE ONE 10/16 1100 CAN IV 10/16 1101 Heparin Sodium 5,000 UNIT Q8 10/15 2200 AC (Porcine) SC Insulin Aspart 0 TIDAC 10/16 0800 AC SC Levothyroxine Sodium 0.15 MG MoWeFr@0700 10/17 0700 AC PO Meclizine HCl 12.5 MG Q8P PRN 10/15 1815 AC PO Midodrine 10 MG 0800,1200,1600 10/16 0800 AC 10/16 PO 0853 Prednisone 2.5 MG MoWeFr@1000 10/17 1000 AC PO Senna/Docusate Sodium 2 TAB DAILY PRN 10/16 0015 AC 10/16 PO 0010 Sodium Chloride 1,000 ML BOLUS ONE 10/15 1630 DC 10/15 IV 10/15 1729 1734 Last 24 Hrs of Lab/Baldo Results Last 24 Hrs of Labs/Mics: Laboratory Tests 10/16/16 1200: Cortisol AM Sample Cancelled 10/16/16 0715: Anion Gap 12, Estimated GFR 4 L, BUN/Creatinine Ratio 3.5 L, Cortisol AM Sample 11.5 10/16/16 0715: ACTH Stimulation Pending, CBC w Diff NO MAN DIFF REQ, RBC 3.21 L, MCV 99.5 H, MCH 33.7 H, RDW 13.6, MPV 9.6, Gran % 77.0 H, Lymphocytes % 15.2 L, Monocytes % 7.0, Eosinophils % 0.5, Basophils % 0.3, Absolute Granulocytes 8.9 H, Absolute Lymphocytes 1.8, Absolute Monocytes 0.8 H, Absolute Eosinophils 0.1, Absolute Basophils 0, PUBS MCHC 33.9 10/15/16 1257: Anion Gap 11, Estimated GFR 4 L, BUN/Creatinine Ratio 3.4 L, Glucose 151 H, Calcium 8.2 L, Total Bilirubin 0.8, AST 19, ALT 24, Alkaline Phosphatase 62, Troponin I 0.01, Total Protein 5.5 L, Albumin 3.1 L, Globulin 2.4, Albumin/ Globulin Ratio 1.3, CBC w Diff MAN DIFF ORDERED, RBC 3.37 L, MCV 99.1 H, MCH 33.6 H, RDW 13.1, MPV 9.3, Gran % 89.4 H, Lymphocytes % 7.3 L, Monocytes % 3.3, Eosinophils % 0, Basophils % 0 L, Absolute Granulocytes 12.2 H, Segmented Neutrophils 87 H, Band Neutrophils 5, Absolute Lymphocytes 1.0 L, Lymphocytes 7 L, Monocytes 1 L, Absolute Monocytes 0.5, Absolute Eosinophils 0, Absolute Basophils 0, Platelet Estimate ADEQUATE, Hypochromic-Microcytic 1+, PUBS MCHC 33.9 Assessment/Plan Assessment: Patient is a 76-year-old female with significant past medical history of end stage renal disease secondary to autosomal dominant polycystic kidney disease on regular peritoneal dialysis(2012), history of brain aneurysm(f/u Dr Jung, going for a screening MRA every 9 months), history of Ann thyroiditis, mild myasthenia gravis, diabetes mellitus, psoriasis with psoriatic arthritis on chronic prednisone, presented with history of episodes of syncope and fall. Vital signs at the time of admission -Temprature -97.9,pulse-64,RR-14, BP-116/68 , SPo2-95% on room air Pertinent labs -hemoglobin 10.8,Na-129, creatinine 9.5, dictation 3.6K -3.6, serum cortisol 11.5, Assessment and plans Patient has episodes of syncope and found to have orthostatic hypotension. It can be due to amyloidosis secondary to peritoneal dialysis or it can be due to steroid insufficiency because she was on chronic steroid therapy for psoriasis and arthritis. We checked the serum cortisol level which was 11.5. Orthostatic hypotension * According to the cranberry sorter, Patient does not need any cardiac monitoring. According to them Trazodone can also cause hypotension. We will hold it and if needed, we will use melatonin for insomnia. * We will continue tablet midodrine as before * We asked managing supervisor for starting her on fludrocortisone, we are waiting for their recms. * We checked the serum cortisol level which was 11.5. * We will follow serum ACTH level. * Strict intake output charting * Fall precautions End stage renal disease on Peritoneal dialysis * We will follow nephrology recommendation * We'll continue peritoneal dialysis as advised. Discussed with Dr Corona, advised 1000 U/1cc, we can continue as she was taking at home. History of myasthenia gravis * Patient is not on any medications. * According to the patient, She feels much better in the morning but as day passes she feels much weaker ? myasthenia. We will discuss with the neurologist for further recommendation Hypothyroidism-Ann thyroiditis * We'll continue levothyroxine at home doses Diet-diabetic diet DVT prophylaxis-ALP S/heparin CODE STATUS-full code Problem List: 1. Peritoneal dialysis catheter in place 2. Chronic kidney disease (CKD) 3. Orthostatic hypotension 4. Polycystic kidney disease 5. Ann's disease Pain Ratin Pain Location: not applicable Pain Goal: Remain pain free Pain Plan: mild to moderate Tomorrow's Labs & Rationales: not requiredas pt is stable DVT/Prophylaxis: mechanical, pharmacological
--- NOTE | 2016-10-16 08:41 | NUR ---
7P-7A SHIFT, PT REMAMINED IN BED DURING THE NIGHT C/O DIZZINESS/LIGHTHEADEDNESS AND HAD A WITNESSED BRIEF SNYCOPAL EPISODE WHILE HIGH FOWLERS. UPON ROUNDING THIS AM PT REQUESTING TO GO TO BATHROOM AND BEDPAN OFFERED D/T SNYCOPE, PT REFUSED ALONG WITH BSC. ASSISTANCE WAS BROUGHT IN AND PT STATED "IM FINE, I CAN DO IT BY MYSELF." HAD AN UNSTEADY GAIT WHILE WALKING AND NEEDED TO HOLD THE WALL AFTER STANDING. PT SEATING IN RECLINER WITH CHAIR ALARM IN PLACE AND EDUCATED OF THE IMPORTANCE OF NOT AMBULATING WITHOUT ASSISTANCE. MD AWARE, WILL CONTINUE TO MONITOR.
[2016-10-16 08:46] LABS: ABSOLUTE BASOPHIL COUNT 0 /CUMM (0.0-0.2); ABSOLUTE EOSINOPHIL COUNT 0.1 /CUMM (0.0-0.7); ABSOLUTE GRANULOCYTE CT 8.9 /CUMM (1.4-6.5); ABSOLUTE LYMPH COUNT 1.8 /CUMM (1.2-3.4); ABSOLUTE MONOCYTE COUNT 0.8 /CUMM (0.10-0.60); BASOPHIL % 0.3 % (0.0-2.0); EOSINOPHIL % 0.5 % (0-5); HEMATOCRIT 31.9 % (37-47); MEAN CORPUSCULAR HGB 33.7 PG (27.0-31.0); MEAN CORPUSCULAR HGB CONC 33.9 G/DL (33.0-37.0); MEAN CORPUSCULAR VOLUME 99.5 FL (81.0-99.0); MEAN PLATELET VOLUME 9.6 FL (7.4-10.4); PLATELET COUNT 245 /CUMM (130-400); RBC DISTRIBUTION WIDTH 13.6 % (11.5-14.5); RED BLOOD CELL CT 3.21 /CUMM (4.20-5.40); WHITE BLOOD CELL COUNT 11.6 /CUMM (4.8-10.8)
--- NOTE | 2016-10-16 12:00 | PN- Cardiology ---
Subjective Subjective: . The patient is sitting in a chair today without symptoms. She states she walked a little bit and did not get lightheaded. She states that she typically gets lightheaded later in the day. She has had no chest pain or shortness of breath. There have been no arrhythmias. She is off her trazodone. Objective Vital Signs and I&Os Vital Signs Date Time Temp Pulse Resp B/P B/P Pulse O2 O2 Flow FiO2 Mean Ox Delivery Rate 10/16 0811 97.9 57 18 134/70 95 Room Air 10/16 0047 97.6 60 18 136/76 94 Room Air 10/15 1949 96.7 18 148/82 94 Room Air 10/15 1944 Room Air 10/15 1822 97.1 56 16 179/69 94 Room Air 10/15 1607 97.3 66 18 162/72 94 Room Air 10/15 1310 57 135/59 10/15 1309 57 135/59 10/15 1227 93 10/15 1223 98.0 57 18 160/70 96 Room Air Intake & Output 10/16 1600 10/16 0800 10/16 0000 10/15 1600 10/15 0800 10/15 0000 Intake Total 250 Output Total 400 Balance -400 250 Intake, IV 200 Intake, Oral 50 Output, 400 Dialysate Patient 163 lb 162 lb Weight Weight Reported by Patient Reported by Patient Measurement Method Physical Exam: She is in no distress. Her vital signs are normal. HEENT exam is normal Chest is clear Heart reveals regular rhythm and no murmurs Extremities no edema Current Medications: Current Medications Sig/Bailey Start time Last Medication Dose Route Stop Time Status Admin Acetaminophen 650 MG Q6P PRN 10/15 1600 AC PO Acetaminophen 1,000 MG Q6P PRN 10/15 1600 AC IV Cosyntropin 0.25 MG ONE ONE 10/16 1100 CAN IV 10/16 1101 Heparin Sodium 5,000 UNIT Q8 10/15 2200 AC (Porcine) SC Insulin Aspart 0 TIDAC 10/16 0800 AC SC Levothyroxine Sodium 0.15 MG MoWeFr@0700 10/17 0700 AC PO Meclizine HCl 12.5 MG Q8P PRN 10/15 1815 AC PO Midodrine 10 MG 0800,1200,1600 10/16 0800 AC 10/16 PO 0853 Prednisone 2.5 MG MoWeFr@1000 10/17 1000 AC PO Senna/Docusate Sodium 2 TAB DAILY PRN 10/16 0015 AC 10/16 PO 0010 Sodium Chloride 1,000 ML BOLUS ONE 10/15 1630 DC 10/15 IV 10/15 1729 1734 Results Last 48 Hrs of Labs/Mics: Laboratory Tests 10/16/16 0715: Anion Gap 12, Estimated GFR 4 L, BUN/Creatinine Ratio 3.5 L, Cortisol AM Sample 11.5 10/16/16 0715: ACTH Stimulation Pending, CBC w Diff NO MAN DIFF REQ, RBC 3.21 L, MCV 99.5 H, MCH 33.7 H, RDW 13.6, MPV 9.6, Gran % 77.0 H, Lymphocytes % 15.2 L, Monocytes % 7.0, Eosinophils % 0.5, Basophils % 0.3, Absolute Granulocytes 8.9 H, Absolute Lymphocytes 1.8, Absolute Monocytes 0.8 H, Absolute Eosinophils 0.1, Absolute Basophils 0, PUBS MCHC 33.9 10/15/16 1257: Anion Gap 11, Estimated GFR 4 L, BUN/Creatinine Ratio 3.4 L, Glucose 151 H, Calcium 8.2 L, Total Bilirubin 0.8, AST 19, ALT 24, Alkaline Phosphatase 62, Troponin I 0.01, Total Protein 5.5 L, Albumin 3.1 L, Globulin 2.4, Albumin/ Globulin Ratio 1.3, CBC w Diff MAN DIFF ORDERED, RBC 3.37 L, MCV 99.1 H, MCH 33.6 H, RDW 13.1, MPV 9.3, Gran % 89.4 H, Lymphocytes % 7.3 L, Monocytes % 3.3, Eosinophils % 0, Basophils % 0 L, Absolute Granulocytes 12.2 H, Segmented Neutrophils 87 H, Band Neutrophils 5, Absolute Lymphocytes 1.0 L, Lymphocytes 7 L, Monocytes 1 L, Absolute Monocytes 0.5, Absolute Eosinophils 0, Absolute Basophils 0, Platelet Estimate ADEQUATE, Hypochromic-Microcytic 1+, PUBS MCHC 33.9 Assessment/Plan Assessment/Plan The patient is stable. She was able to get up and around this morning. We will see how she does during the day. There does not appear to be a cardiac issue here. Telemetry can be discontinued. We await further nephrology opinion. Continue telemetry? No
--- NOTE | 2016-10-16 14:04 | Cons- Neurology ---
General Information and HPI Consulting Request Date of Consult: 10/16/16 Requested By: ALYSON PENA,XANDER Almanzar History of Present Illness: 76-year-old female with history of end-stage renal disease on peritoneal dialysis, diabetes with diabetic neuropathy and a known history of orthostatic hypotension for perhaps as long as one year. She has been maintained on midodrine. Recently, she has had several brief syncopal events, always precipitated by assuming the upright position. She denies any dizziness or lightheadedness when seated or recumbent. After one of these events, she her orthostasis was documented with a blood pressure drop of 150 to80 systolic. She has no history of seizure or stroke. She is followed by my associate, Samir Jung MD, for a small cerebral aneurysm which is being followed with serial imaging. Allergies/Medications Allergies: Coded Allergies: codeine (UNKNOWN 10/15/16) Home Med List: Cholecalciferol (Vitamin D3) (Vitamin D) 5,000 UNIT TABLET 1 TAB PO DAILY VITAMIN SUPPORT (Reported) Folic Acid 1 MG TABLET 1 TAB PO DAILY SUPPLEMENT (Reported) Gabapentin 100 MG CAPSULE 1 CAP PO BID UNKNOWN (Reported) Levothyroxine Sodium 150 MCG TABLET 1 TAB PO MoWeFr ANN (Reported) Lisinopril (Prinivil) 10 MG TABLET 1 TAB PO DAILY HTN (Reported) Meclizine HCl 25 MG TABLET 1 TAB PO TIDPRN PRN DIZZNESS (Reported) Midodrine HCl 10 MG TABLET 1 TAB PO TID BP (Reported) Multivitamin (Multiple Vitamins) 1 EACH TABLET 1 TAB PO DAILY VITAMIN SUPPORT (Reported) Potassium Chloride 20 MEQ TAB.ER.PRT 1 TAB PO BID SUPPLEMENT (Reported) Prednisone 10 MG TABLET 1 TAB PO DAILY STEROID (Reported) Rosuvastatin Calcium (Crestor) 10 MG TABLET 1 TAB PO MoWeFr HLD (Reported) Sitagliptin Phosphate (Januvia) 100 MG TABLET 0.5 TAB PO MoWeFr DM (Reported) Thiamine HCl (B-1) 100 MG TABLET 1 TAB PO DAILY VITAMIN SUPPORT (Reported) Trazodone HCl 50 MG TABLET 1.5 TAB PO QPM DEPRESSION (Reported) Trazodone HCl 50 MG TABLET 1 TAB PO QPM SLEEP (Reported) Review of Systems Review of Systems: Notable for dizziness and syncope upon arising. She reports no recent fever, chills, rash, diplopia, dysarthria, dysphagia, chest pain, vomiting, vertigo, joint inflammation or abnormal bleeding. She will admit to paresthesias of the feet. 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 Other Medical Hx: cerbral aneurysm Surgical History Surgical History: non-contributory Family History Relations & Conditions If Any: BROTHER FH polycystic kidney Psychosocial History Smoking Status: Former Smoker ETOH Use: denies use Illicit Drug Use: denies illicit drug use Exam & Diagnostic Data Vital Signs and I&O Date Time Temp Pulse Resp B/P B/P Pulse O2 O2 Flow FiO2 Mean Ox Delivery Rate 10/16 0811 97.9 57 18 134/70 95 Room Air 10/16 0047 97.6 60 18 136/76 94 Room Air 10/15 1949 96.7 18 148/82 94 Room Air 10/15 1944 Room Air 10/15 1822 97.1 56 16 179/69 94 Room Air 10/15 1607 97.3 66 18 162/72 94 Room Air Intake & Output 10/16 1600 10/16 0800 10/16 0000 Intake Total 250 Output Total 400 Balance -400 250 Intake, IV 200 Intake, Oral 50 Output, 400 Dialysate Patient 163 lb Weight Weight Reported by Patient Measurement Method Pleasant elderly white female in no acute distress. She is sitting up in a chair, performing her own peritoneal dialysis. The head was normocephalic and atraumatic. Higher cortical function was intact. Speech was fluent. Pupils were equal and reactive. Extraocular movements were full. Face was symmetric. Hearing was grossly normal. There was no dysarthria. Motor examination showed no drift of the upper extremities. There was no focal or lateralizing weakness. Deep tendon reflexes were hypoactive in the lower extremities. Plantar responses were flexor. Sensory examination showed diminished distal vibratory sensation in the feet. There was no ataxia on [id number] testing. The gait was not evaluated. Assessment/Plan Assessment: #1 syncope in the setting of known orthostatic hypotension. This may be complicated by diabetic neuropathy, dehydration or medications. There is no sign of an underlying neurodegenerative/extraparamidal disorder. #2 incidental intracranial aneurysm being surveilled by Dr. Jung Recommendations: We would endorse general measures such as compression stockings, proper hydration and keeping the head of the bed up at night to 30. She may continue on her midodrine however one would be careful to follow for the possibility of supine hypertension, especially in view of her known intracranial aneurysm. Trials of Florinef or the newer agent, Northera, might be considered if cleared by nephrology and cardiology. Cardiology has suggested that her trazodone be discontinued as this may be associated with her orthostasis. She is to see Dr. Jung in office in the near future. Please feel free to call with any further questions. Consult Acknowledgment - Thank you for your consult request.
[2016-10-16 14:56] VITALS: BP 122/78
--- NOTE | 2016-10-16 14:56 | PN- Att Addend ---
Attending MD Review Statement Attending Statement Attending MD Statement: examined this patient, discuss w/resident/PA/RIBBON BLOCKMAKER, agreed w/resident/PA/RIBBON BLOCKMAKER, discussed with family, reviewed EMR data (avail), discussed w/ nursing, discussed w/case mgmt Attending Assessment/Plan: Laboratory Tests 10/16/16 1200: Cortisol AM Sample Cancelled 10/16/16 0715: Anion Gap 12, Estimated GFR 4 L, BUN/Creatinine Ratio 3.5 L, Cortisol AM Sample 11.5 10/16/16 0715: ACTH Stimulation Pending, CBC w Diff NO MAN DIFF REQ, RBC 3.21 L, MCV 99.5 H, MCH 33.7 H, RDW 13.6, MPV 9.6, Gran % 77.0 H, Lymphocytes % 15.2 L, Monocytes % 7.0, Eosinophils % 0.5, Basophils % 0.3, Absolute Granulocytes 8.9 H, Absolute Lymphocytes 1.8, Absolute Monocytes 0.8 H, Absolute Eosinophils 0.1, Absolute Basophils 0, PUBS MCHC 33.9 Vital Signs Date Time Temp Pulse Resp B/P B/P Pulse O2 O2 Flow FiO2 Mean Ox Delivery Rate 10/16 0811 97.9 57 18 134/70 95 Room Air 10/16 0047 97.6 60 18 136/76 94 Room Air 10/15 1949 96.7 18 148/82 94 Room Air 10/15 1944 Room Air 10/15 1822 97.1 56 16 179/69 94 Room Air 10/15 1607 97.3 66 18 162/72 94 Room Air 76 yr old female with pmh of APKD, ESRD on peritoneal dialysis, ? Mild Myasthenia gravis not on meds , orthostatic hypotension on midodrine, psoriasis on hydrocortisone and also on po prednisone ( ? For RA) low dose 3 times a week admitted with recurrent syncopal episodes. AM cortisol level ok. Will f/u on ACTH levels. Less likely endocrine cause. Would give a trail of doronf if nephrology ok with it. Seen by neurology- appreciated their input. Will d/w neuro about her ? Myasthenia gravis diagnosis. Pt does feel that she gets weaker as the day progresses. Seen by cariology- hold trazodone for now. Can give melatonin for insomnia as needed instead.
[2016-10-16 15:30] VITALS: BP 116/68
--- NOTE | 2016-10-16 17:08 | PN- Nephrology ---
Assessment/Plan Assessment: 1. 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 Orthostatic hypotension of uncertain etiology. Differential diagnosis includes autonomic neuropathy and adrenal insufficiency. She is already on maximal dose of midodrine. Suggestion: 1. Agree with Cortrosyn stimulation test 2. Suggest trial of Florinef 0.1 mg by mouth twice a day 3. Continue use of compression stockings 4. Continue current PD regimen; can add 1000 units of heparin to first bag of day. Subjective Subjective: Patient has had no further overt syncopal episodes and has no specific complaints at this time. Peritoneal dialysis seems to be functioning reasonably well on all 1.5% solutions. Objective Vital Signs and I&Os Vital Signs Date Time Temp Pulse Resp B/P B/P Pulse O2 O2 Flow FiO2 Mean Ox Delivery Rate 10/16 1530 97.9 64 14 116/68 95 Room Air 10/16 1456 63 122/78 10/16 0811 97.9 57 18 134/70 95 Room Air 10/16 0047 97.6 60 18 136/76 94 Room Air 10/15 1949 96.7 18 148/82 94 Room Air 10/15 1944 Room Air 10/15 1822 97.1 56 16 179/69 94 Room Air Intake & Output 10/16 1600 10/16 0400 10/15 1600 10/15 0400 10/14 1600 10/14 0400 Intake Total 480 250 Output Total 1000 Balance -520 250 Intake, IV 0 200 Intake, Oral 480 50 Number 2 Bowel Movements Output, 1000 Dialysate Patient 163 lb 162 lb Weight Weight Reported by Patient Reported by Patient Measurement Method Physical Exam: General: Well-developed white female in NAD Skin: No rash or jaundice HEENT: Conjunctivae pink, sclerae anicteric, mucous membranes moist Neck: Without masses or thyromegaly, no supraclavicular or cervical adenopathy Chest: Clear Heart: Regular rate and rhythm without S3 or rub Abdomen: Soft and nontender Extremities: Without cyanosis or edema Neuro: No overt focal findings, no asterixis or myoclonus Current Medications: Current Medications Sig/Bailey Start time Last Medication Dose Route Stop Time Status Admin Acetaminophen 650 MG Q6P PRN 10/15 1600 AC PO Acetaminophen 1,000 MG Q6P PRN 10/15 1600 AC IV Cosyntropin 0.25 MG ONE ONE 10/16 1100 CAN IV 10/16 1101 Heparin Sodium 5,000 UNIT Q8 10/15 2200 AC (Porcine) SC Insulin Aspart 0 TIDAC 10/16 0800 AC SC Levothyroxine Sodium 0.15 MG MoWeFr@0700 10/17 0700 AC PO Meclizine HCl 12.5 MG Q8P PRN 10/15 1815 AC PO Midodrine 10 MG 0800,1200,1600 10/16 0800 AC 10/16 PO 1224 Patient Medication 1 ED .STK-MED ONE 10/16 1405 DC Teaching ED 10/16 1406 Potassium Chloride 20 MEQ BID 10/16 1206 AC 10/16 PO 1224 Prednisone 2.5 MG MoWeFr@1000 10/17 1000 AC PO Senna/Docusate Sodium 2 TAB DAILY PRN 10/16 0015 AC 10/16 PO 0010 Sodium Chloride 1,000 ML BOLUS ONE 10/15 1630 DC 10/15 IV 10/15 1729 1734 Thiamine HCl 100 MG DAILY 10/16 1206 AC 10/16 PO 1344 Results Pertinent Lab Results: Laboratory Tests 10/16 10/16 10/16 1200 0715 0715 Chemistry Sodium (137 - 145 mmol/L) 129 L Potassium (3.5 - 5.1 mmol/L) 3.6 Chloride (98 - 107 mmol/L) 91 L Carbon Dioxide (22 - 30 mmol/L) 26 Anion Gap (5 - 16) 12 BUN (7 - 17 mg/dL) 33 H Creatinine (0.5 - 1.0 mg/dL) 9.5 *H Estimated GFR (>60 ml/min) 4 L BUN/Creatinine Ratio (7 - 25 %) 3.5 L Cortisol AM Sample (4.46 - 22.7 ug/dL) Cancelled 11.5 ACTH Stimulation Pending Hematology CBC w Diff NO MAN DIFF REQ WBC (4.8 - 10.8 /CUMM) 11.6 H RBC (4.20 - 5.40 /CUMM) 3.21 L Hgb (12.0 - 16.0 G/DL) 10.8 L Hct (37 - 47 %) 31.9 L MCV (81.0 - 99.0 FL) 99.5 H MCH (27.0 - 31.0 PG) 33.7 H RDW (11.5 - 14.5 %) 13.6 Plt Count (130 - 400 /CUMM) 245 MPV (7.4 - 10.4 FL) 9.6 Gran % (42.2 - 75.2 %) 77.0 H Lymphocytes % (20.5 - 51.1 %) 15.2 L Monocytes % (1.7 - 9.3 %) 7.0 Eosinophils % (0 - 5 %) 0.5 Basophils % (0.0 - 2.0 %) 0.3 Absolute Granulocytes (1.4 - 6.5 /CUMM) 8.9 H Absolute Lymphocytes (1.2 - 3.4 /CUMM) 1.8 Absolute Monocytes (0.10 - 0.60 /CUMM) 0.8 H Absolute Eosinophils (0.0 - 0.7 /CUMM) 0.1 Absolute Basophils (0.0 - 0.2 /CUMM) 0 PUBS MCHC (33.0 - 37.0 G/DL) 33.9 06/12 1257 Chemistry Sodium (137 - 145 mmol/L) 129 L Potassium (3.5 - 5.1 mmol/L) 4.0 Chloride (98 - 107 mmol/L) 92 L Carbon Dioxide (22 - 30 mmol/L) 26 Anion Gap (5 - 16) 11 BUN (7 - 17 mg/dL) 32 H Creatinine (0.5 - 1.0 mg/dL) 9.4 *H Estimated GFR (>60 ml/min) 4 L BUN/Creatinine Ratio (7 - 25 %) 3.4 L Glucose (65 - 99 mg/dL) 151 H Calcium (8.4 - 10.2 mg/dL) 8.2 L Total Bilirubin (0.2 - 1.3 mg/dL) 0.8 AST (14 - 36 U/L) 19 ALT (9 - 52 U/L) 24 Alkaline Phosphatase (<127 U/L) 62 Troponin I (< 0.11 ng/ml) 0.01 Total Protein (6.3 - 8.2 g/dL) 5.5 L Albumin (3.5 - 5.0 g/dL) 3.1 L Globulin (1.9 - 4.2 gm/dL) 2.4 Albumin/Globulin Ratio (1.1 - 2.2 %) 1.3 Hematology CBC w Diff MAN DIFF ORDERED WBC (4.8 - 10.8 /CUMM) 13.7 H RBC (4.20 - 5.40 /CUMM) 3.37 L Hgb (12.0 - 16.0 G/DL) 11.3 L Hct (37 - 47 %) 33.4 L MCV (81.0 - 99.0 FL) 99.1 H MCH (27.0 - 31.0 PG) 33.6 H RDW (11.5 - 14.5 %) 13.1 Plt Count (130 - 400 /CUMM) 274 MPV (7.4 - 10.4 FL) 9.3 Gran % (42.2 - 75.2 %) 89.4 H Lymphocytes % (20.5 - 51.1 %) 7.3 L Monocytes % (1.7 - 9.3 %) 3.3 Eosinophils % (0 - 5 %) 0 Basophils % (0.0 - 2.0 %) 0 L Absolute Granulocytes (1.4 - 6.5 /CUMM) 12.2 H Segmented Neutrophils (42.2 - 75.2 %) 87 H Band Neutrophils (0.0 - 5.0 %) 5 Absolute Lymphocytes (1.2 - 3.4 /CUMM) 1.0 L Lymphocytes (20.5 - 51.1 %) 7 L Monocytes (1.7 - 9.3 %) 1 L Absolute Monocytes (0.10 - 0.60 /CUMM) 0.5 Absolute Eosinophils (0.0 - 0.7 /CUMM) 0 Absolute Basophils (0.0 - 0.2 /CUMM) 0 Platelet Estimate (ADEQUATE) ADEQUATE Hypochromic-Microcytic 1+ PUBS MCHC (33.0 - 37.0 G/DL) 33.9
[2016-10-17 00:29] VITALS: BP 137/72
[2016-10-17 08:15] VITALS: BP 130/68
[2016-10-17 08:25] VITALS: BP 112/68
--- NOTE | 2016-10-17 08:27 | PN- Housestaff ---
Subjective Follow-up For: Orthostatic hypotension Complaints: in morning patient was comfortable but later in day she started saying she has nausea, dizziness Tele-Events Since Last Visit: discontinued telemetry and transfered to floor Subjective: Patient is seen and examined at the bed side. She was comfortable and under going dialysis. Discussed with she had good night and was had no any episodes. 10:00 -She complaint for episodes of nausea and dizziness. She was given IM tigan after that she felt much better.Discussed with patient about the importance of wearing Stockings.Later we order to transfer to Review of Systems Constitutional: Reports: no symptoms. Gastrointestinal: Reports: nausea. Neurological/Psychological: Reports: no symptoms (dizziness). Objective Last 24 Hrs of Vital Signs/I&O Vital Signs Date Time Temp Pulse Resp B/P B/P Pulse O2 O2 Flow FiO2 Mean Ox Delivery Rate 10/17 0825 88 112/68 10/17 0815 98.3 65 18 130/68 92 Room Air 10/17 0029 98.8 63 18 137/72 93 Intake & Output 10/17 1600 10/17 0800 10/17 0000 Intake Total 600 100 670 Output Total 2400 0 500 Balance -1800 100 170 Intake, IV 20 Intake, Oral 600 100 650 Number 1 Bowel Movements Output, 2400 0 500 Dialysate Physical Exam General Appearance: Alert, Oriented X3, Cooperative, No Acute Distress Cardiovascular: Normal S1, Normal S2 Lungs: Clear to Auscultation, Normal Air Movement Abdomen: peritoneal dialysis catheterRichard in left celine quadrant. Local area showed no any signs of inflammation Neurological: Normal Speech Extremities: No Clubbing, No Cyanosis, No Edema Current Medications: Current Medications Sig/Bailey Start time Last Medication Dose Route Stop Time Status Admin Acetaminophen 650 MG Q6P PRN 10/15 1600 AC PO Acetaminophen 1,000 MG Q6P PRN 10/15 1600 AC IV Cholecalciferol 5,000 IU DAILY 10/17 1000 AC 10/17 PO 1022 Fludrocortisone 100 MCG BID 10/16 1715 AC 10/17 Acetate PO 1022 Heparin Sodium 5,000 UNIT Q8 10/15 2200 AC 10/17 (Porcine) SC 1428 Insulin Aspart 0 TIDAC 10/16 0800 AC SC Levothyroxine Sodium 0.15 MG MoWeFr@0700 10/17 0700 AC 10/17 PO 0630 Meclizine HCl 12.5 MG Q8P PRN 10/15 1815 AC 10/17 PO 1022 Midodrine 10 MG 0800,1200,1600 10/16 0800 AC 10/17 PO 1241 Potassium Chloride 20 MEQ BID 10/16 1206 AC 10/17 PO 1022 Prednisone 2.5 MG MoWeFr@1000 10/17 1000 AC 10/17 PO 1022 Senna/Docusate Sodium 2 TAB DAILY PRN 10/16 0015 AC 10/16 PO 0010 Thiamine HCl 100 MG DAILY 10/16 1206 AC 10/17 PO 1022 Trimethobenzamide HCl 200 MG ONCE ONE 10/17 0930 DC 10/17 IM 10/17 0931 0926 Assessment/Plan Assessment: Patient is a 76-year-old female with significant past medical history of 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 Vital signs at the time of admission -Temprature -97.9,pulse-64,RR-14, BP-116/68 , SPo2-95% on room air Pertinent labs -hemoglobin 10.8,Na-129, creatinine 9.5, dictation 3.6K -3.6, serum cortisol 11.5, Assessment and plans Patient has episodes of syncope and found to have orthostatic hypotension. It can be due to amyloidosis secondary to peritoneal dialysis or it can be due to steroid insufficiency because she was on chronic steroid therapy for psoriasis and arthritis. We checked the serum cortisol level which was 11.5. We will follow ACTH level. Orthostatic hypotension * According to the grease and tallow pumper, Patient does not need any cardiac monitoring. We DC'd the telemetric monitoring on 10/16/2016, and transfered patient to general medical floor on 10/17/2016.According to them Trazodone can also cause hypotension. We will hold it and if needed, we will use melatonin for insomnia. * Today orthostatic vitals were 140/70 on lying, 126/78 on sitting, 112/68 on standing. * We will continue tablet midodrine as before * We started patient on tablet florinef 100mcg BID. * We checked the serum cortisol level which was 11.5. * We will follow serum ACTH level. * Strict intake output charting * Fall precautions End stage renal disease on Peritoneal dialysis * We will follow nephrology recommendation * We'll continue peritoneal dialysis as advised. Discussed with Dr Corona, advised 1000 U/1cc, we can continue as she was taking at home. History of myasthenia gravis * Patient is not on any medications. * According to the patient, She feels much better in the morning but as day passes she feels much weaker ? myasthenia. We discussed different doctor iniguez and according to him, patient does not have any drooping of eyelids, blurry vision or difficulty in swallowing. It does not seems that she is having any clinical evidence of myasthenia gravis. She may need further evaluation as an outpatient if needed. Hypothyroidism-Ann thyroiditis * We'll continue levothyroxine at home doses Diet-diabetic diet DVT prophylaxis-ALP S/heparin CODE STATUS-full code Problem List: 1. Peritoneal dialysis catheter in place 2. Polycystic kidney disease 3. Ann's disease 4. Orthostatic hypotension Pain Ratin Pain Location: not applicable Pain Goal: Remain pain free Pain Plan: mild to moderate Tomorrow's Labs & Rationales: BEP DVT/Prophylaxis: mechanical, pharmacological
--- NOTE | 2016-10-17 11:16 | NUR ---
PATIENT DIZZY AND IS COMPLAINING OF NAUSEA. RESIDENT AWARE AND PEMA ORDERED AND GIVEN. PATIENT ALSO WAS GIVEN ANTIVERT PO. NAUSEA PERSISITED AND PATIENT VOMITED X 1. DIZZINESS CONTINUES WITH NAUSEA. DR CRISTÓBAL GARAY.
--- NOTE | 2016-10-17 11:50 | PN- Nephrology ---
Assessment/Plan Assessment: 1. 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 Orthostatic hypotension 3. Nausea/vomiting this a.m with associated dizziness 4. Small cerebral aneurysm being followed with serial imaging Suggestion: 1. Anti-emetics; consider Antivert 2. Continue trial of Florinef 0.1 mg by mouth twice a day 3. Continue use of compression stockings 4. Continue current PD regimen Subjective Subjective: She is complaining of nausea, vomiting and dizziness this morning without associated pain. She denies hearing loss or tinnitus. No true vertigo. Blood pressure this morning 140/70 supine, 126/78 sitting, 112/68 standing. Pulse 69 --> 74 --> 88. Florinef started yesterday. Objective Vital Signs and I&Os Vital Signs Date Time Temp Pulse Resp B/P B/P Pulse O2 O2 Flow FiO2 Mean Ox Delivery Rate 10/17 0825 88 112/68 10/17 0815 98.3 65 18 130/68 92 Room Air 10/17 0029 98.8 63 18 137/72 93 10/16 1530 97.9 64 14 116/68 95 Room Air 10/16 1456 63 122/78 Intake & Output 10/17 1600 10/17 0400 10/16 1600 10/16 0400 10/15 1600 10/15 0400 Intake Total 100 670 480 250 Output Total 0 500 1000 Balance 100 170 -520 250 Intake, IV 20 0 200 Intake, Oral 100 650 480 50 Number 1 2 Bowel Movements Output, 0 500 1000 Dialysate Patient 163 lb 162 lb Weight Weight Reported by Patient Reported by Patient Measurement Method Physical Exam: General: Well-developed white female complaining of dizziness and nausea Skin: No rash or jaundice HEENT: Conjunctivae pink, sclerae anicteric, mucous membranes dry Neck: Without masses or thyromegaly, no supraclavicular or cervical adenopathy Chest: Clear P&A Heart: Regular rate and rhythm without S3 or rub Abdomen: Soft and nontender without masses or organomegaly Extremities: Without cyanosis or edema Neuro: No overt focal findings, no asterixis or myoclonus, no nystagmus Results Pertinent Lab Results: Laboratory Tests 10/16 10/16 10/16 1200 0715 0715 Chemistry Sodium (137 - 145 mmol/L) 129 L Potassium (3.5 - 5.1 mmol/L) 3.6 Chloride (98 - 107 mmol/L) 91 L Carbon Dioxide (22 - 30 mmol/L) 26 Anion Gap (5 - 16) 12 BUN (7 - 17 mg/dL) 33 H Creatinine (0.5 - 1.0 mg/dL) 9.5 *H Estimated GFR (>60 ml/min) 4 L BUN/Creatinine Ratio (7 - 25 %) 3.5 L Cortisol AM Sample (4.46 - 22.7 ug/dL) Cancelled 11.5 ACTH Stimulation Pending Hematology CBC w Diff NO MAN DIFF REQ WBC (4.8 - 10.8 /CUMM) 11.6 H RBC (4.20 - 5.40 /CUMM) 3.21 L Hgb (12.0 - 16.0 G/DL) 10.8 L Hct (37 - 47 %) 31.9 L MCV (81.0 - 99.0 FL) 99.5 H MCH (27.0 - 31.0 PG) 33.7 H RDW (11.5 - 14.5 %) 13.6 Plt Count (130 - 400 /CUMM) 245 MPV (7.4 - 10.4 FL) 9.6 Gran % (42.2 - 75.2 %) 77.0 H Lymphocytes % (20.5 - 51.1 %) 15.2 L Monocytes % (1.7 - 9.3 %) 7.0 Eosinophils % (0 - 5 %) 0.5 Basophils % (0.0 - 2.0 %) 0.3 Absolute Granulocytes (1.4 - 6.5 /CUMM) 8.9 H Absolute Lymphocytes (1.2 - 3.4 /CUMM) 1.8 Absolute Monocytes (0.10 - 0.60 /CUMM) 0.8 H Absolute Eosinophils (0.0 - 0.7 /CUMM) 0.1 Absolute Basophils (0.0 - 0.2 /CUMM) 0 PUBS MCHC (33.0 - 37.0 G/DL) 33.9 06/12 06/ 1257 1242 Chemistry Sodium (137 - 145 mmol/L) 129 L Potassium (3.5 - 5.1 mmol/L) 4.0 Chloride (98 - 107 mmol/L) 92 L Carbon Dioxide (22 - 30 mmol/L) 26 Anion Gap (5 - 16) 11 BUN (7 - 17 mg/dL) 32 H Creatinine (0.5 - 1.0 mg/dL) 9.4 *H Estimated GFR (>60 ml/min) 4 L BUN/Creatinine Ratio (7 - 25 %) 3.4 L Glucose (65 - 99 mg/dL) 151 H Calcium (8.4 - 10.2 mg/dL) 8.2 L Total Bilirubin (0.2 - 1.3 mg/dL) 0.8 AST (14 - 36 U/L) 19 ALT (9 - 52 U/L) 24 Alkaline Phosphatase (<127 U/L) 62 Troponin I (< 0.11 ng/ml) 0.01 Total Protein (6.3 - 8.2 g/dL) 5.5 L Albumin (3.5 - 5.0 g/dL) 3.1 L Globulin (1.9 - 4.2 gm/dL) 2.4 Albumin/Globulin Ratio (1.1 - 2.2 %) 1.3 Hematology CBC w Diff MAN DIFF ORDERED WBC (4.8 - 10.8 /CUMM) 13.7 H RBC (4.20 - 5.40 /CUMM) 3.37 L Hgb (12.0 - 16.0 G/DL) 11.3 L Hct (37 - 47 %) 33.4 L MCV (81.0 - 99.0 FL) 99.1 H MCH (27.0 - 31.0 PG) 33.6 H RDW (11.5 - 14.5 %) 13.1 Plt Count (130 - 400 /CUMM) 274 MPV (7.4 - 10.4 FL) 9.3 Gran % (42.2 - 75.2 %) 89.4 H Lymphocytes % (20.5 - 51.1 %) 7.3 L Monocytes % (1.7 - 9.3 %) 3.3 Eosinophils % (0 - 5 %) 0 Basophils % (0.0 - 2.0 %) 0 L Absolute Granulocytes (1.4 - 6.5 /CUMM) 12.2 H Segmented Neutrophils (42.2 - 75.2 %) 87 H Band Neutrophils (0.0 - 5.0 %) 5 Absolute Lymphocytes (1.2 - 3.4 /CUMM) 1.0 L Lymphocytes (20.5 - 51.1 %) 7 L Monocytes (1.7 - 9.3 %) 1 L Absolute Monocytes (0.10 - 0.60 /CUMM) 0.5 Absolute Eosinophils (0.0 - 0.7 /CUMM) 0 Absolute Basophils (0.0 - 0.2 /CUMM) 0 Platelet Estimate (ADEQUATE) ADEQUATE Hypochromic-Microcytic 1+ PUBS MCHC (33.0 - 37.0 G/DL) 33.9 Urines Urine Color Cancelled Urine Clarity Cancelled Urine pH Cancelled Ur Specific [place] Cancelled Urine Protein Cancelled Urine Ketones Cancelled Urine Nitrite Cancelled Urine Bilirubin Cancelled Urine Urobilinogen Cancelled Ur Leukocyte Esterase Cancelled Ur Microscopic Cancelled Urine Hemoglobin Cancelled Urine Glucose Cancelled
--- NOTE | 2016-10-17 12:03 | Discharge Summary ---
Visit Information Visit Dates Admission Date: 10/15/16 Discharge Date: 10/18/2016 Hospital Course Course Attending Physician: DEB DURBIN MD Primary Care Physician: IVAN DE GUZMAN MD Hospital Course: Patient is a 76-year-old female with significant past medical history of end stage renal disease secondary to autosomal dominant polycystic kidney disease on regular peritoneal dialysis(2012), history of brain aneurysm(f/u Dr Kidd, going for a screening MRA every 9 months), history of Ann thyroiditis, mild myasthenia gravis, diabetes mellitus, psoriasis with psoriatic arthritis on chronic prednisone, presented with history of episodes of syncope and fall. Vital signs at the time of admission -Temprature -97.9,pulse-64,RR-14, BP-116/68 , SPo2-95% on room air, orthostatic vital -151/65 on lying, 135/59 on sitting, 86/59 on standing. Pertinent labs -hemoglobin 10.8,Na-129, creatinine 9.5, dictation 3.6K -3.6, serum cortisol 11.5, Orthostatic hypotension, probably secondary to chronic diseases including end- stage renal disease, diabetes, leading to possibly amyloidosis We admitted patient on telemetry.We took cardiology, neurology, nephrology consultation. According to finance analyst, she recently had stress test / echocardiogram( July 2015) which were normal. We stopped trazodone, as per their recommendation as it may cause postural hypotension, and continued midodrine. We did serum cortisol and ACTH level which comes back normal 11.5, 23 respectively, which ruled out adrenal insufficiency. After discussing with the button tufting machine operator, we started patient on fludrocortisone. It leads to significant improvement in orthostasis. Orthostatic blood pressure at the time of discharge was 140/70 on lying, 110/80 on sitting, 112/86 on standing.We discharged patient on tablet fludrocortisone 100 mcg BID and advised to follow-up with PCP/ button tufting machine operator/finance analyst. We also advised to take all fall precautions. 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 on peritoneal dialysis (2012) History of brain aneurysm(f/u Dr Kidd, going for a screening MRA every 9 months) History of Ann thyroiditis History of myasthenia gravis History of diabetes mellitus History of psoriasis with psoriatic arthritis on chronic prednisone History of hypertension History of dyslipidemia Discharge Disposition: home health services Discharge Instructions General Discharge Information Code Status: Full Code Patient's Diet: Diabetic, renal diet Patient's Activity: As tolerated, take all fall precautions Follow-Up Instructions/Appts: Please follow-up with your PCP within a week of discharge,for further management. please follow up with your button tufting machine operator,with in a week of discharge for further management of dialysis. Please follow-up with Tracey for further management of peritoneal dialysis please follow up with your neurologist/Dr. Kidd for further management of weakness and evaluation for myasthenia. Please take the medication as advised Medications at Discharge Discharge Medications: Stop taking the following medications: Trazodone HCl (Trazodone HCl) 50 MG TABLET ORAL Every night Continue taking these medications: Rosuvastatin Calcium (Crestor) 10 MG TABLET 1 Tablet ORAL MoWeFr Comments: NOT GIVEN WHILE IN HOSPITAL Folic Acid (Folic Acid) 1 MG TABLET 1 Tablet ORAL DAILY Comments: NOT GIVEN WHILE IN HOSPITAL Lisinopril (Prinivil) 10 MG TABLET 1 Tablet ORAL DAILY Comments: NOT GIVEN WHILE IN HOSPITAL Levothyroxine Sodium (Levothyroxine Sodium) 150 MCG TABLET 1 Tablet ORAL MoWeFr Comments: Last Taken: 10/17/16 Time: 6AM Sitagliptin Phosphate (Januvia) 100 MG TABLET 0.5 Tablet ORAL MoWeFr Comments: NOT GIVEN WHILE IN HOSPITAL Multivitamin (Multiple Vitamins) 1 EACH TABLET 1 Tablet ORAL DAILY Comments: NOT GIVEN WHILE IN HOSPITAL Gabapentin (Gabapentin) 100 MG CAPSULE 1 Capsule ORAL TWICE DAILY Comments: NOT GIVEN WHILE IN HOSPITAL Potassium Chloride (Potassium Chloride) 20 MEQ TAB.ER.PRT 1 Tablet ORAL TWICE DAILY Qty = 60 Comments: Last Taken: 10/18/16 Time: 9AM Meclizine HCl (Meclizine HCl) 25 MG TABLET 1 Tablet ORAL THREE TIMES A DAY NEEDED as needed for DIZZNESS Midodrine HCl (Midodrine HCl) 10 MG TABLET 1 Tablet ORAL THREE TIMES DAILY Qty = 90 Comments: Last Taken: 10/18/16 Time: 1PM Prednisone (Prednisone) 10 MG TABLET 0.5 Tablet ORAL SATURDAY, SATURDAY AND SATURDAY Qty = 30 Comments: Last Taken: 10/17/16 Time: 10AM Thiamine HCl (B-1) 100 MG TABLET 1 Tablet ORAL DAILY Comments: Last Taken: 10/18/16 Time: 9AM Cholecalciferol (Vitamin D3) (Vitamin D) 5,000 UNIT TABLET 1 Tablet ORAL DAILY Comments: Last Taken: 10/18/16 Time: 9AM Start taking the following new medications: Fludrocortisone Acetate (Fludrocortisone Acetate) 0.1 MG TABLET 100 Microgram ORAL TWICE DAILY Qty = 30 No Refills Comments: Last Taken: 10/18/16 Time: 9AM Copies To: MARISEL KIDD MD; LEISA WISE MD Attending Review Statement Documenting Attending: DEB DURBIN MD, MD, WILLIAM Time: 9AM Copies To: MARISEL KIDD MD; LEISA WISE MD Attending Review Statement Documenting Attending: DEB DURBIN MD
--- NOTE | 2016-10-17 16:17 | PN- Att Addend ---
Attending MD Review Statement Attending Statement Attending MD Statement: examined this patient, discuss w/resident/PA/WAVE SOLDERING MACHINE OPERATOR, agreed w/resident/PA/WAVE SOLDERING MACHINE OPERATOR, discussed with family, reviewed EMR data (avail), discussed w/ nursing, discussed w/case mgmt Attending Assessment/Plan: Vital Signs Date Time Temp Pulse Resp B/P B/P Pulse O2 O2 Flow FiO2 Mean Ox Delivery Rate 10/17 0825 88 112/68 10/17 0815 98.3 65 18 130/68 92 Room Air 10/17 0029 98.8 63 18 137/72 93 76 yr old female with pmh of APKD, ESRD on peritoneal dialysis, ? Mild Myasthenia gravis not on meds , orthostatic hypotension on midodrine, psoriasis on hydrocortisone and also on po prednisone ( ? For RA) low dose 3 times a week admitted with recurrent syncopal episodes. AM cortisol level ok. Will f/u on ACTH levels. Less likely endocrine cause. Started on a trail of florinef and will see if her orthostatic hypotension improves with it. Seen by neurology- appreciated their input. Does not think it is myasthenia. Seen by cariology- hold trazodone for now. Can give melatonin for insomnia as needed instead. DC telemetry and transfer to [facility]
[2016-10-17 17:10] VITALS: BP 138/78
[2016-10-17 18:00] VITALS: BP 110/80; BP 160/70
--- NOTE | 2016-10-17 19:47 | NUR ---
LATE NURSING ENTRY: October PATIENT APROACH BY THIS RN TO EXPLAINED COMPRESSION STOCKINGS AND MEASSURE FOR IT, ACCORDING TO IPOC ORDER. PATIENT EXPLAINED THAT SHE HAS HER OWN NEW COMPRESSION STOCKINGS THAT SHE GOT FROM [employer] [facility]ORE AND SHE WAS MEASSURED FOR IT. PATIENT REFUSED THE HOSPITAL STOCKINGS EXPLAINING THAT HER OWN ARE MORE COMFORTABLE, AND MADE OF BETTER QUALITY MATERIAL, THEY DONT CAUSE DISCOMFORT TO HER SENSITIVE SKIN. STOKINGS WERE CHECK BY THIS RN AND REMOVED FOR BEDTIME.
--- NOTE | 2016-10-17 21:58 | NUR ---
1800 PATIENT CALLED FOR ASSISTANCE TO THE BATHROOM, PATIENT SAT ON THE EDGE OF THE BED WITH HELP FROM THIS RN, PATIENT REPORTS SLIGHT DIZZINES, AND INSIST TO GET UP TO BATHROOM. WITH HELP FROM THIS RN AND MST PATIENT WALKED TO BATHROOM WITH UNSTEADY GAIT. RN AT PATIENT SITE AT ALL TIME, PATIENT UNABLE TO GET UP AND STAND, REPORTS SEVERE DIZZINES, UNABLE TO HOLD STRONG. REMAIN ALERT. PATIENT HELPED TO CHAIR AND SLIDED TO BED, THAN TRANSFERED TO BED WITH 3 RN, VSS LYING DOWN 160/70, HR 59, SPO2 95%, SITTING BP 110/80, HR 67, SPO2 100%. PATIENT IN BED REPORT SYMPTOMS SUBSIDING, FAMILY AT BEDSITE. MD SALCEDO PAGED AND MADE AWARE. EMOTIONAL SUPPORT GIVEN TO PATIENT, SHE REPORTS SYMPTOMS IMPROVED, WCTM.
[2016-10-17 22:57] VITALS: BP 132/70
[2016-10-18 07:48] VITALS: BP 132/70
[2016-10-18 08:38] VITALS: BP 104/62
--- NOTE | 2016-10-18 09:45 | PN- Housestaff ---
RICK PENA,MERYL 10/18/16 0945: Subjective Follow-up For: Orthostatic hypotension Complaints: no complaints Subjective: Sitting up in a chair, looks forward to being discharged. Review of Systems Constitutional: Reports: no symptoms. Objective Last 24 Hrs of Vital Signs/I&O Vital Signs Date Time Temp Pulse Resp B/P B/P Pulse O2 O2 Flow FiO2 Mean Ox Delivery Rate 10/18 0838 104/62 10/18 0748 97.5 54 20 132/70 96 Room Air 10/17 2257 97.8 54 20 132/70 94 Room Air 10/17 1800 59 18 160/70 95 Room Air 10/17 1800 67 18 110/80 100 Room Air 10/17 1710 98.1 50 16 138/78 94 Room Air Intake & Output 10/18 1600 10/18 0800 10/18 0000 Intake Total 100 Output Total 1100 700 Balance -1000 -700 Intake, Oral 100 Output, 1000 700 Dialysate Output, Urine 100 Physical Exam General Appearance: Alert, Oriented X3, Cooperative, No Acute Distress Skin: No Significant Lesion HEENT: PERRLA, EOMI, Mucous Membr. moist/pink Neck: Supple, No JVD Cardiovascular: Regular Rate, Normal S1, Normal S2 Lungs: Clear to Auscultation, Normal Air Movement Abdomen: Normal Bowel Sounds, Soft, No Tenderness, peritoneal dialysis catheter in situ Extremities: No Edema, Normal Pulses Current Medications: Current Medications Sig/Bailey Start time Last Medication Dose Route Stop Time Status Admin Acetaminophen 650 MG .STK-MED ONE 10/17 1944 DC PO 10/17 194 Acetaminophen 650 MG Q6P PRN 10/15 1600 AC 10/17 PO 194 Acetaminophen 1,000 MG Q6P PRN 10/15 1600 AC IV Cholecalciferol 5,000 IU DAILY 10/17 1000 AC 10/18 PO 0836 Fludrocortisone 100 MCG BID 10/16 1715 AC 10/18 Acetate PO 0835 Heparin Sodium 5,000 UNIT Q8 10/15 2200 AC 10/17 (Porcine) SC 1428 Insulin Aspart 0 TIDAC 10/16 0800 AC 10/17 SC 1719 Levothyroxine Sodium 0.15 MG MoWeFr@0700 10/17 0700 AC 10/17 PO 0630 Meclizine HCl 12.5 MG Q8P PRN 10/15 1815 AC 10/17 PO 1022 Midodrine 10 MG 0800,1200,1600 10/16 0800 AC 10/18 PO 0835 Potassium Chloride 20 MEQ BID 10/16 1206 AC 10/18 PO 0836 Prednisone 2.5 MG MoWeFr@1000 10/17 1000 AC 10/17 PO 1022 Senna/Docusate Sodium 2 TAB DAILY PRN 10/16 0015 AC 10/16 PO 0010 Thiamine HCl 100 MG DAILY 10/16 1206 AC 10/18 PO 0836 Last 24 Hrs of Lab/Baldo Results Last 24 Hrs of Labs/Mics: not done Lines/Diet/Fluids Lines: peripheral lines Assessment/Plan Assessment: Patient is a 76-year-old female with significant past medical history of 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 Vital signs at the time of admission -Temprature -97.9,pulse-64,RR-14, BP-116/68 , SPo2-95% on room air Pertinent labs -hemoglobin 10.8,Na-129, creatinine 9.5, dictation 3.6K -3.6, serum cortisol 11.5, Assessment and plans Patient has episodes of syncope and found to have orthostatic hypotension. It can be due to amyloidosis secondary to peritoneal dialysis or it can be due to steroid insufficiency because she was on chronic steroid therapy for psoriasis and arthritis. We checked the serum cortisol level which was 11.5. We will follow ACTH level. Orthostatic hypotension * Repeat orthostatic vitals daily * We will continue tablet midodrine * Continue florinef 100mcg BID. * We will follow serum ACTH level. * Strict intake output charting * Fall precautions * PT eval for discharge recs * Discharge planning if pt continues to be stable End stage renal disease on Peritoneal dialysis * We'll continue peritoneal dialysis as advised. Discussed with Dr Corona, advised 1000 U/1cc, we can continue as she was taking at home. History of myasthenia gravis * Patient is not on any medications. * According to the patient, She feels much better in the morning but as day passes she feels much weaker ? myasthenia. We discussed different doctor iniguez and according to him, patient does not have any drooping of eyelids, blurry vision or difficulty in swallowing. It does not seems that she is having any clinical evidence of myasthenia gravis. She may need further evaluation as an outpatient if needed. Hypothyroidism-Ann thyroiditis * We'll continue levothyroxine at home doses Diet-diabetic diet DVT prophylaxis-ALP S/heparin CODE STATUS-full code Problem List: 1. Orthostatic hypotension Pain Ratin Pain Location: n/a Pain Goal: n/a Pain Plan: n/a Tomorrow's Labs & Rationales: DEB PATEL MD 10/18/16 5346: Attending MD Review Statement Attending Statement Attending MD Statement: examined this patient, discuss w/resident/PA/AUTO SERVICE WRITER, agreed w/resident/PA/AUTO SERVICE WRITER, discussed with family, reviewed EMR data (avail), discussed with nursing, discussed with case mgmt, amended to note Attending Assessment/Plan: The patient was seen and discussed with house staff, family, nursing and case management. Appreciate Nephrology input (Dr. Jernigan). Significant improvement in orthostatis with addition of Florinef. Patient stable for discharge and will follow-up with peritoneal dialysis nurse. Will. continue to hold Trazodone at least on temporary basis.
[2016-10-18 11:30] VITALS: BP 140/90
--- NOTE | 2016-10-18 11:30 | NUR ---
AFTER WALKING WITH PHYSICAL THERAPY PT ASSISTED TO CHAIR. APPEARS WEAK AND IS NOTED TO HAVE HER EYES ROLLING TO THE BACK OF HER HEAD. NO LOSS OF CONSCIOUSNESS. ASSISTING PHYSICAL THERAPIST AND STATES THAT THIS IS NOT OFF FROM HER BASELINE. PT ALSO DOES NOT EXPRESS ANY CONCERNS THAT THIS IS ANY DIFFERENT THAN HER BASELINE. AFTER BEING ASSISTED TO CHAIR, PT REMAINS AWAKE AND ALERT. BP CHECKED, 140/[address] IN [address]AIR[address] DURBIN AT BEDSIDE DURING INCIDENT.
--- NOTE | 2016-10-18 13:56 | PN- Nephrology ---
Assessment/Plan Assessment: 1. 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 Orthostatic hypotension 3. Nausea/vomiting - resolved 4. Small cerebral aneurysm being followed with serial imaging Suggestion: 1. Mobilize and consider discharge home 2. Continue Florinef 0.1 mg by mouth twice a day 3. Continue use of compression stockings Subjective Subjective: Patient looks and feels better today. Her peritoneal dialysis is running smoothly with significant ultrafiltration of 3+ liters negative fluid balance/ day. She is mildly hyponatremic, on a high fluid intake and should be on a regular diet with adequate sodium intake. She is anxious to go home as soon as feasible. Objective Vital Signs and I&Os Vital Signs Date Time Temp Pulse Resp B/P B/P Pulse O2 O2 Flow FiO2 Mean Ox Delivery Rate 10/18 1130 140/90 10/18 0838 104/62 10/18 0748 97.5 54 20 132/70 96 Room Air 10/17 2257 97.8 54 20 132/70 94 Room Air 10/17 1800 59 18 160/70 95 Room Air 10/17 1800 67 18 110/80 100 Room Air 10/17 1710 98.1 50 16 138/78 94 Room Air Intake & Output 10/18 1600 10/18 0400 10/17 1600 10/17 0400 10/16 1600 10/16 0400 Intake Total 100 700 670 480 250 Output Total 0501 460 9942 500 1000 Balance -1300 -700 -1700 170 -520 250 Intake, IV 20 0 200 Intake, Oral 100 700 650 480 50 Number 1 2 Bowel Movements Output, 8386 690 0200 500 1000 Dialysate Output, Urine 100 Patient 163 lb Weight Weight Reported by Patient Measurement Method Physical Exam: General: Well-developed white female in no acute distress Skin: No rash or jaundice HEENT: Conjunctivae pink, sclerae anicteric, mucous membranes moist Neck: Without masses or thyromegaly, no supraclavicular or cervical adenopathy Chest: Clear P&A Heart: Regular rate and rhythm without S3 or rub Abdomen: Soft and nontender without masses or organomegaly Extremities: Without cyanosis or edema Results Pertinent Lab Results: Laboratory Tests 10/16 10/16 10/16 1200 0715 0715 Chemistry Sodium (137 - 145 mmol/L) 129 L Potassium (3.5 - 5.1 mmol/L) 3.6 Chloride (98 - 107 mmol/L) 91 L Carbon Dioxide (22 - 30 mmol/L) 26 Anion Gap (5 - 16) 12 BUN (7 - 17 mg/dL) 33 H Creatinine (0.5 - 1.0 mg/dL) 9.5 *H Estimated GFR (>60 ml/min) 4 L BUN/Creatinine Ratio (7 - 25 %) 3.5 L Cortisol AM Sample (4.46 - 22.7 ug/dL) Cancelled 11.5 ACTH Stimulation (6 - 50 pg/mL) 23 Hematology CBC w Diff NO MAN DIFF REQ WBC (4.8 - 10.8 /CUMM) 11.6 H RBC (4.20 - 5.40 /CUMM) 3.21 L Hgb (12.0 - 16.0 G/DL) 10.8 L Hct (37 - 47 %) 31.9 L MCV (81.0 - 99.0 FL) 99.5 H MCH (27.0 - 31.0 PG) 33.7 H RDW (11.5 - 14.5 %) 13.6 Plt Count (130 - 400 /CUMM) 245 MPV (7.4 - 10.4 FL) 9.6 Gran % (42.2 - 75.2 %) 77.0 H Lymphocytes % (20.5 - 51.1 %) 15.2 L Monocytes % (1.7 - 9.3 %) 7.0 Eosinophils % (0 - 5 %) 0.5 Basophils % (0.0 - 2.0 %) 0.3 Absolute Granulocytes (1.4 - 6.5 /CUMM) 8.9 H Absolute Lymphocytes (1.2 - 3.4 /CUMM) 1.8 Absolute Monocytes (0.10 - 0.60 /CUMM) 0.8 H Absolute Eosinophils (0.0 - 0.7 /CUMM) 0.1 Absolute Basophils (0.0 - 0.2 /CUMM) 0 PUBS MCHC (33.0 - 37.0 G/DL) 33.9
[2016-10-18 13:59] VITALS: BP 120/60
--- NOTE | 2016-10-18 14:53 | Patient Discharge Instructions ---
Discharge Instructions General Discharge Information You were seen/treated for: You were is for Dizziness and fall and we found that you are having postural hypotension/ orthostatic hypotension, and we treated for it. Special Instructions: please follow up with your multi line claims adjuster for further management of dialysis with in a week. please follow up with your neurologist for further management of weakness and evaluation for myasthenia. please follow up with PCP for further management. Diet Recommended Diet: Diabetic, Renal Dialysis Acute Coronary Syndrome Inclusion Criteria At DC or during hospital stay patient has or had the following: ACS DIAGNOSIS No Discharge Core Measures Meds if any: Prescribed or Continued at Discharge Meds if any: NOT Prescribed or Continued at Discharge Congestive Heart Failure Inclusion Criteria At DC or during hospital stay patient has or had the following: CHF DIAGNOSIS No Discharge Core Measures Meds if any: Prescribed or Continued at Discharge Meds if any: NOT Prescribed or Continued at Discharge Cerebrovascular accident Inclusion Criteria At DC or during hospital stay patient has or had the following: CVA/TIA Diagnosis No Discharge Core Measures Meds if any: Prescribed or Continued at Discharge Meds if any: NOT Prescribed or Continued at Discharge Venous thromboembolism Inclusion Criteria VTE Diagnosis No VTE Type NONE VTE Confirmed by (Test) NONE Discharge Core Measures - Per Current guidelines, there needs to be overlap - treatment for the first 5 days of Warfarin therapy. - If discharged on Warfarin prior to 5 days of - overlap therapy, the patient will need to be - assessed for post discharge needs including - *Post discharge parental anticoagulation - *Warfarin and/or parental anticoagulation education - *Follow up date to check INR post discharge At least 5 days overlap therapy as Inpatient No Meds if any: Prescribed or Continued at Discharge Warfarin No Note: Overlap Therapy is Warfarin and Anticoagulant Meds if any: NOT Prescribed or Continued at Discharge
[2016-10-18] MEDS ORDERED: FLUDROCORTISON0.1 M1 PO (15:12)
== END 2016-10-18 16:33 | disposition home health service (06) | DRG 312 ==
LOC: ERH 12:13 → 2NA 15:06 → 1NO 15:06 → ERHI 15:06 → ENRESERV 17:57 → ENTRNSPT 18:51 → 1NO 19:07 → CMPTRNSPT 20:59 → 1NO 10-17 14:49 → 2NA 10-17 20:30
PROVIDERS: Physician Assistant Medical; Student in an Organized Health Care Education/Training Program; ADMIT Internal Medicine
DX: I95.1 Orthostatic hypotension (principal); N18.6 End stage renal disease; I12.0 Hypertensive chronic kidney disease with stage 5 chronic kidney disease or end stage renal disease; E11.22 Type 2 diabetes mellitus with diabetic chronic kidney disease; E87.1 Hypo-osmolality and hyponatremia; Q61.2 Polycystic kidney, adult type; Z99.2 Dependence on renal dialysis; Z79.84 Long term (current) use of oral hypoglycemic drugs; G70.00 Myasthenia gravis without (acute) exacerbation; E11.40 Type 2 diabetes mellitus with diabetic neuropathy, unspecified; E06.3 Autoimmune thyroiditis; L40.50 Arthropathic psoriasis, unspecified; E78.5 Hyperlipidemia, unspecified
CPT/HCPCS: 1NSP; 2NAP; 36415; 82436; 93005; 93010; 97116-GO; 97161-GP; 97530-GO; J0131; J0834; J1644; J3250